=== PATIENT | male | born 1950 | race Caucasian/White ===

== ENCOUNTER 2018-02-24 09:38 | Inpatient (IN) | payer MEDICARE, OTHER ==
[2018-02-24] MEDS ORDERED: ONDANSETRON 4 MG/2 ML VIAL IVP STA (11:04)
[2018-02-24] MEDS ORDERED: MORPHINE SULFATE 4 MG/ML SYRINGE IV STA (11:04)
[2018-02-24] MEDS ORDERED: SODIUM CHLORIDE 0.9% 1,000 ML IV STA (11:04)
--- NOTE | 2018-02-24 11:06 | ED ---
General Adult HPI - General Chief complaint: Abdominal Pain Stated complaint: abd pain,vomiting Time Seen by Provider: 02/24/18 10:54 Source: family, RN notes reviewed Mode of arrival: wheelchair Limitations: no limitations - History of Present Illness Initial comments: Patient's a 67-year-old male presented to the emergency room today with chief complaint of abdominal pain nausea vomiting diarrhea. He states symptoms started at 5 AM this morning. He states pain is going throughout the abdomen describes a sharp. Currently rates it a 01/19. Patient states she's never had similar symptoms in the past. Patient denies any recent fever, chills, shortness of breath, chest pain, back pain, numbness or tingling, dysuria or hematuria, constipation, headaches or visual changes, or any other complaints. - Related Data Home Medications Medication Instructions Recorded Confirmed Escitalopram [Lexapro] 10 mg PO DAILY 02/24/18 02/24/18 Melatonin 10 mg PO HS PRN 02/24/18 02/24/18 Tamsulosin HCl [Flomax] 0.4 mg PO DAILY 02/24/18 02/24/18 buPROPion HCL [Wellbutrin SR] 150 mg PO BID 02/24/18 02/24/18 Allergies Allergy/AdvReac Type Severity Reaction Status Date / Time clonazepam [From Klonopin] Allergy Itching Verified 02/24/18 10:55 divalproex sodium AdvReac RINGING OF Verified 02/24/18 10:55 [From Depakote] EARS Review of Systems ROS Statement: Those systems with pertinent positive or pertinent negative responses have been documented in the HPI. ROS Other: All systems not noted in ROS Statement are negative. Past Medical History Past Medical History: Hypertension, Memory Impairment, Myocardial Infarction ([place] ), Sleep Apnea/CPAP/BIPAP Additional Past Medical History / Comment(s): HX SHINGLES Last Myocardial Infarction Date:: 1991 History of Any Multi-Drug Resistant Organisms: None Reported Past Surgical History: Appendectomy, Orthopedic Surgery, Tonsillectomy Past Anesthesia/Blood Transfusion Reactions: No Reported Reaction Past Psychological History: ADD/ADHD, Anxiety Smoking Status: Former smoker Past Alcohol Use History: None Reported Past Drug Use History: None Reported General Exam - General Exam Comments Initial Comments: General: The patient is awake and alert, in moderate distress. Eye: Pupils are equal, round and reactive to light. Extra-ocular movements are intact. No nystagmus. There is normal conjunctiva bilaterally. No signs of icterus. Ears, nose, mouth and throat: There are moist mucous membranes and no oral lesions. Neck: The neck is supple, there is no tenderness or JVD. Cardiovascular: There is a regular rate and rhythm. No murmur, rub or gallop is appreciated. Respiratory: Lungs are clear to auscultation, respirations are non-labored, breath sounds are equal. No wheezes, stridor, rales, or rhonchi. Gastrointestinal: Abdomen soft on palpation. Patient does have tenderness both on the right, left upper and lower quadrants no CVA tenderness or guarding. Musculoskeletal: Normal ROM, no tenderness. Sensation intact. Strength 5/5. Pulses equal bilaterally 2+. Neurological: A&O x 3. CN II-XII intact, There are no obvious motor or sensory deficits. Coordination appears grossly intact. Speech is normal. Skin: Skin is warm and dry and no rashes or lesions are noted. Psychiatric: Cooperative, appropriate mood & affect, normal judgment. Limitations: no limitations Course Vital Signs 02/24/18 02/24/18 02/24/18: 11:04 14:00 Temperature 97.9 F Pulse Rate 62 64 Respiratory 26 H 19 Rate Blood Pressure 144/83 163/95 O2 Sat by Pulse 98 96 Oximetry Medical Decision Making - Medical Decision Making Patient's labs reviewed does show a lactic acid 3.3 with a white count of 17, 000. Patient's abdominal pain much improved after pain medication given here in the emergency room. He does admit that he had loose stools this morning. States she's not been passing gas since. He denies any history of small bowel obstruction in the past. Patient's CT of the abdomen and pelvis does show evidence for SBO. Case was discussed with attending physician Dr Blevins did discuss case with surgeon sanitation associate Dr. Rodriguez who will admit the patient and recommend starting antibiotics of Unasyn. - Lab Data Result diagrams: 02/24/18 11:50 02/24/18 11:50 Lab Results 02/24/18 02/24/18 02/24/18 Range/Units 11:50 11:50 11:50 WBC 17.7 H (3.8-10.6) k/uL RBC 5.79 (4.30-5.90) m/uL Hgb 17.3 (13.0-17.5) gm/dL Hct 50.0 (39.0-53.0) % MCV 86.3 (80.0-100.0) fL MCH 29.9 (25.0-35.0) pg MCHC 34.7 (31.0-37.0) g/dL RDW 13.0 (11.5-15.5) % Plt Count 182 (150-450) k/uL Neutrophils % 90 % Lymphocytes % 6 % Monocytes % 3 % Eosinophils % 1 % Basophils % 0 % Neutrophils # 15.9 H (1.3-7.7) k/uL Lymphocytes # 1.0 (1.0-4.8) k/uL Monocytes # 0.6 (0-1.0) k/uL Eosinophils # 0.2 (0-0.7) k/uL Basophils # 0.0 (0-0.2) k/uL Sodium 138 (137-145) mmol/L Potassium 4.7 (3.5-5.1) mmol/L Chloride 108 H (98-107) mmol/L Carbon Dioxide 18 L (22-30) mmol/L Anion Gap 12 mmol/L BUN 31 H (9-20) mg/dL Creatinine 1.11 (0.66-1.25) mg/dL Est GFR (CKD-EPI)AfAm 79 (>60 ml/min/1.73 sqM) Est GFR (CKD-EPI)NonAf 69 (>60 ml/min/1.73 sqM) Glucose 178 H (74-99) mg/dL Plasma Lactic Acid Obi 3.3 H* (0.7-2.0) mmol/L Calcium 9.3 (8.4-10.2) mg/dL Total Bilirubin 1.1 (0.2-1.3) mg/dL AST 31 (17-59) U/L ALT 29 (21-72) U/L Alkaline Phosphatase 81 (38-126) U/L Total Protein 7.1 (6.3-8.2) g/dL Albumin 4.1 (3.5-5.0) g/dL Amylase 64 (30-110) U/L Lipase 52 (23-300) U/L Urine Color Urine Appearance (Clear) Urine pH (5.0-8.0) Ur Specific [place] (1.001-1.035) Urine Protein (Negative) Urine Glucose (UA) (Negative) Urine Ketones (Negative) Urine Blood (Negative) Urine Nitrite (Negative) Urine Bilirubin (Negative) Urine Urobilinogen (<2.0) mg/dL Ur Leukocyte Esterase (Negative) 02/24/18 Range/Units 14:00 WBC (3.8-10.6) k/uL RBC (4.30-5.90) m/uL Hgb (13.0-17.5) gm/dL Hct (39.0-53.0) % MCV (80.0-100.0) fL MCH (25.0-35.0) pg MCHC (31.0-37.0) g/dL RDW (11.5-15.5) % Plt Count (150-450) k/uL Neutrophils % % Lymphocytes % % Monocytes % % Eosinophils % % Basophils % % Neutrophils # (1.3-7.7) k/uL Lymphocytes # (1.0-4.8) k/uL Monocytes # (0-1.0) k/uL Eosinophils # (0-0.7) k/uL Basophils # (0-0.2) k/uL Sodium (137-145) mmol/L Potassium (3.5-5.1) mmol/L Chloride (98-107) mmol/L Carbon Dioxide (22-30) mmol/L Anion Gap mmol/L BUN (9-20) mg/dL Creatinine (0.66-1.25) mg/dL Est GFR (CKD-EPI)AfAm (>60 ml/min/1.73 sqM) Est GFR (CKD-EPI)NonAf (>60 ml/min/1.73 sqM) Glucose (74-99) mg/dL Plasma Lactic Acid Obi (0.7-2.0) mmol/L Calcium (8.4-10.2) mg/dL Total Bilirubin (0.2-1.3) mg/dL AST (17-59) U/L ALT (21-72) U/L Alkaline Phosphatase (38-126) U/L Total Protein (6.3-8.2) g/dL Albumin (3.5-5.0) g/dL Amylase (30-110) U/L Lipase (23-300) U/L Urine Color Yellow Urine Appearance Clear (Clear) Urine pH 5.5 (5.0-8.0) Ur Specific [place] 1.049 H (1.001-1.035) Urine Protein Trace H (Negative) Urine Glucose (UA) Negative (Negative) Urine Ketones 1+ H (Negative) Urine Blood Negative (Negative) Urine Nitrite Negative (Negative) Urine Bilirubin Negative (Negative) Urine Urobilinogen <2.0 (<2.0) mg/dL Ur Leukocyte Esterase Negative (Negative) Disposition Clinical Impression: SBO (small bowel obstruction) Disposition: ADMITTED IP TO THIS HOSP Condition: Good Is patient prescribed a controlled substance at d/c from ED?: No Referrals: Cory Linder MD [Primary Care Provider] - 1-2 days Time of Disposition: 14:34
[2018-02-24 12:10] LABS: Basophils % (A) 0 %; Eosinophils # (A) 0.2 k/uL (0-0.7); Eosinophils % (A) 1 %; HGB 17.3 gm/dL (13.0-17.5); Lymphocytes % (A) 6 %; MCH 29.9 pg (25.0-35.0); MCHC 34.7 g/dL (31.0-37.0); MCV 86.3 fL (80.0-100.0); Monocytes # (A) 0.6 k/uL (0-1.0); Monocytes % (A) 3 %; Neutrophils # (A) 15.9 k/uL (1.3-7.7); Neutrophils % (A) 90 %; Platelet Count 182 k/uL (150-450); RBC 5.79 m/uL (4.30-5.90); WBC 17.7 k/uL (3.8-10.6)
[2018-02-24 12:30] LABS: Albumin 4.1 g/dL (3.5-5.0); Calcium 9.3 mg/dL (8.4-10.2); Total Bilirubin 1.1 mg/dL (0.2-1.3); Total Protein 7.1 g/dL (6.3-8.2)
[2018-02-24 12:32] LABS: Potassium 4.7 mmol/L (3.5-5.1)
[2018-02-24] MEDS ORDERED: GLYCOPYRROLATE 0.2 MG/ML 2 ML VIAL ONE (12:52)
[2018-02-24] MEDS ORDERED: fentaNYL (PF) 50 MCG/ML 2 ML AMP ONE (12:52)
[2018-02-24] MEDS ORDERED: NEOSTIGMINE 1 MG/ML 10 ML VIAL ONE (12:52)
[2018-02-24] MEDS ORDERED: PROPOFOL 10 MG/ML 20 ML VIAL IV ONE (12:52)
[2018-02-24] MEDS ORDERED: ePHEDrine SULFATE/0.9% NACL/PF 50 MG/5 ML SYRINGE IV ONE (12:52)
[2018-02-24] MEDS ORDERED: MIDAZOLAM 2 MG/2 ML VIAL ONE (12:52)
[2018-02-24] MEDS ORDERED: ROCURONIUM BROMIDE 10 MG/ML 10 ML VIAL IV ONE (12:52)
--- NOTE | 2018-02-24 14:07 | CT ---
EXAMINATION TYPE: CT abdomen pelvis w con DATE OF EXAM: 02/24/2018 COMPARISON: None HISTORY: abdominal pain CT DLP: 749.8 mGycm Automated exposure control for dose reduction was used. TECHNIQUE: Helical acquisition of images from the lung bases through the pelvis have been completed. CONTRAST: Performed without Oral Contrast and with IV Contrast, patient injected with 100 mL of Isovue 300. FINDINGS: Lack of oral contrast may compromise sensitivity. There is a small hiatal hernia present. LUNG BASES: Dependent atelectatic changes are present. AORTA: No significant abnormality is appreciated. LIVER/GB: Multiple low attenuation subcentimeter foci scattered within the liver are statistically li tate to represent cysts, there is a cystic focus measuring 13 mm in the inferior posterior right lobe of the liver, gallbladder is normal PANCREAS: No significant abnormality is seen. SPLEEN: No significant abnormality is seen. ADRENALS: No significant abnormality is seen. KIDNEYS: Exophytic cystic focus at the lower pole the right kidney measures 2.4 cm REPRODUCTIVE ORGANS: Prostate calcifications are present. BOWEL: There are dilated loops of fluid-filled small bowel in the right hemiabdomen. There is a sugg estion of swirling of the mesentery. Abrupt caliber change is noted on axial images 43-44 in the righ t lower quadrant. There is poor wall enhancement of some of the small bowel loops, suggestion of poss ible tethering artifact with fluid in the mesentery. The appendix is not seen. FREE AIR: No Free Air visible. ASCITES: Small amount of fluid present around the liver and spleen and in the pelvis. PELVIC ADENOPATHY: None visualized. RETROPERITONEAL ADENOPATHY: No Retroperitoneal Adenopathy visible. URINARY BLADDER: No significant abnormality is seen. OSSEOUS STRUCTURES: No significant abnormality is seen. IMPRESSION: FINDINGS SUGGEST POSSIBLE MECHANICAL BOWEL OBSTRUCTION, THERE MAY BE ASSOCIATED ISCHEMIC BOWEL, POSSI BLE INTERNAL HERNIA. Report relayed telephonically to the referring clinician at the time of interpre tation at exam the emergency center.
[2018-02-24 14:20] LABS: Appearance,Urine Clear (Clear); Bilirubin,Urine Negative (Negative); Blood,Urine Negative (Negative); Color,Urine Yellow; Glucose,Urine (UA) Negative (Negative); Ketones,Urine 1+ (Negative); Leukocyte Esterase,Urine Negative (Negative); Nitrite,Urine Negative (Negative); PH, Urine 5.5 (5.0-8.0); Protein,Urine Trace (Negative); Urobilinogen,Urine <2.0 mg/dL (<2.0)
[2018-02-24 14:21] LABS: Specific Gravity,Urine 1.049 (1.001-1.035)
[2018-02-24] MEDS ORDERED: AMPICILLIN-SULBACTAM 3 GM in SODIUM CHLORIDE 0.9% 100 ML IVPB STA (14:22)
[2018-02-24] MEDS ORDERED: NALOXONE 0.4 MG/ML 1 ML VIAL IV PRN (14:35)
[2018-02-24] MEDS ORDERED: ONDANSETRON 4 MG/2 ML VIAL IVP PRN (14:35)
[2018-02-24] MEDS ORDERED: SODIUM CHLORIDE 0.9% 1,000 ML IV ONE (14:35)
[2018-02-24] MEDS: MORPHINE SULFATE 4 MG/ML SYRINGE IV PRN (19:30)
[2018-02-24] MEDS ORDERED: hydrALAZINE HCL 20 MG/ML 1 ML VIAL IVP STA (19:39)
[2018-02-24] MEDS: AMPICILLIN-SULBACTAM 3 GM in SODIUM CHLORIDE 0.9% 100 ML IVPB SCH (21:51)
[2018-02-24] MEDS ORDERED: hydrALAZINE HCL 20 MG/ML 1 ML VIAL IVP PRN (22:39)
[2018-02-25] MEDS: MORPHINE SULFATE 4 MG/ML SYRINGE IV PRN ×3 (00:38→09:22)
[2018-02-25] MEDS: AMPICILLIN-SULBACTAM 3 GM in SODIUM CHLORIDE 0.9% 100 ML IVPB SCH ×5 (02:40→23:54)
[2018-02-25 08:58] LABS: Basophils % (A) 0 %; Eosinophils # (A) 0.1 k/uL (0-0.7); Eosinophils % (A) 1 %; HCT 48.8 % (39.0-53.0); HGB 15.9 gm/dL (13.0-17.5); Lymphocytes % (A) 21 %; MCHC 32.6 g/dL (31.0-37.0); MCV 89.1 fL (80.0-100.0); Mean Platelet Volume 7.7; Monocytes # (A) 0.5 k/uL (0-1.0); Monocytes % (A) 5 %; Neutrophils % (A) 72 %; Platelet Count 165 k/uL (150-450); RBC 5.47 m/uL (4.30-5.90); RDW 13.2 % (11.5-15.5); WBC 9.8 k/uL (3.8-10.6)
[2018-02-25 09:22] LABS: Albumin 3.2 g/dL (3.5-5.0); Calcium 8.6 mg/dL (8.4-10.2); Potassium 4.6 mmol/L (3.5-5.1); Total Bilirubin 1.3 mg/dL (0.2-1.3); Total Protein 5.8 g/dL (6.3-8.2)
[2018-02-25] MEDS: PANTOPRAZOLE 40 MG/10 ML VIAL IVP SCH ×2 (09:22→22:03)
--- NOTE | 2018-02-25 10:05 | P.GSHP ---
<Dulce Maxwell - Last Filed: 02/25/18 09:49> History of Present Illness H&P Date: 02/25/18 67-year-old male who presented on the day of admission to the emergency room with a chief complaint of developing sudden onset of abdominal pain associated with nausea vomiting and loose stools. Patient stated that the pain felt sharp going through his abdomen points to the mid epigastric areas to the reference point. Patient stated was pain that he had not experienced in the past. Patient stated that most of his life he has been experiencing constipation with episodes of loose stools. Reviewing computerized record 2013 patient was seen by GI service for constipation and dark stools. Underwent a colonoscopy. The colon Exam is within normal limits. In the emergency room a computed tomography scan of the abdomen pelvis with contrast reviewing the report findings suggest possible mechanical bowel obstruction may be associated with ischemic bowel possible internal hernia. White count on admission was 17.5 this morning 9.8 amylase lipase not elevated total bili 1.1 on admission 1.3 this morning in the emergency room a nasogastric tube was inserted with a 400 mL to return. Currently gastric tube connected to intermittent suction approximate 400 out. Patient reports still having diffuse abdominal cramping the nausea sensation no emesis Past surgical history appendectomy, orthopedic procedures, tonsillectomy. Past medical history memory impairment, sleep apnea, hypertension - Review of Systems Comment: Essentially unremarkable except as mentioned in the present illness Past Medical History Past Medical History: GERD/Reflux, GI Bleed, Hypertension, Memory Impairment, Myocardial Infarction ([place]), Osteoarthritis ([place]), Pneumonia, Sleep Apnea/CPAP/ BIPAP Additional Past Medical History / Comment(s): "shingles >5 years ago", "born with heart murmur", "past blood rectally d/t hemmorhoids", hx migraines,past juandice/hepatitis-not sure what type."alternates between diarrhea and constitaion", cataracts. Last Myocardial Infarction Date:: 1991 History of Any Multi-Drug Resistant Organisms: None Reported Past Surgical History: Appendectomy, Orthopedic Surgery, Tonsillectomy Past Anesthesia/Blood Transfusion Reactions: No Reported Reaction Additional Past Anesthesia/Blood Transfusion Reaction / Comment(s): clausterphobia. never had a blood transfusion. Smoking Status: Former smoker - Past Family History Father Family Medical History: Cancer Mother Additional Family Medical History / Comment(s): rh-neg, "lung problems" Medications and Allergies Home Medications Medication Instructions Recorded Confirmed Type Escitalopram [Lexapro] 10 mg PO DAILY 02/24/18 02/24/18 History Melatonin 10 mg PO HS PRN 02/24/18 02/24/18 History Tamsulosin HCl [Flomax] 0.4 mg PO DAILY 02/24/18 02/24/18 History buPROPion HCL [Wellbutrin SR] 150 mg PO BID 02/24/18 02/24/18 History Allergies Allergy/AdvReac Type Severity Reaction Status Date / Time clonazepam [From Klonopin] Allergy Itching Verified 02/24/18 10:55 divalproex sodium AdvReac RINGING OF Verified 02/24/18 10:55 [From Depakote] EARS Surgical - Exam Vital Signs Pulse Resp BP Pulse Ox 62 26 H 144/83 98 02/24/18 10:19 02/24/18 10:19 02/24/18 10:19 02/24/18 10:19 GENERAL APPEARANCE: 67-year-old male patient is alert, orientedx 3 in no acute distress. "Just received pain medication" VITAL SIGNS: Reviewed HEENT: Head is normocephalic and atraumatic. Pupils are equal and reactive. The nares are patent. Oropharynx is clear without lesions. NECK: Supple without lymphadenopathy. Traches midline. HEART: S1, S2. Regular rate and rhythm. No murmur denying chest pain LUNGS: No crackles or wheezes are heard. On room air no shortness of breath ABDOMEN: Nasogastric tube to intermittent suction diffuse tenderness slightly distended with few bowel sounds. No peritoneal signs. No palpable organomegaly or masses. EXTREMITIES: Normal skin color and turgor. No cyanosis, rash, ulceration, clubbing or edema. Radial pedal pulses are 2/4 bilaterally. NEUROLOGICAL: No focal deficits. Strength and sensation are grossly intact. Results - Labs 02/25/18 08:19 02/25/18 08:19 Abnormal Lab Results - Last 24 Hours (Table) 02/24/18 02/24/18 02/24/18 Range/Units 11:50 11:50 11:50 WBC 17.7 H (3.8-10.6) k/uL Neutrophils # 15.9 H (1.3-7.7) k/uL Chloride 108 H (98-107) mmol/L Carbon Dioxide 18 L (22-30) mmol/L BUN 31 H (9-20) mg/dL Glucose 178 H (74-99) mg/dL Plasma Lactic Acid Obi 3.3 H* (0.7-2.0) mmol/L Total Protein (6.3-8.2) g/dL Albumin (3.5-5.0) g/dL Ur Specific [place] (1.001-1.035) Urine Protein (Negative) Urine Ketones (Negative) 02/24/18 02/25/18 Range/Units 14:00 08:19 WBC (3.8-10.6) k/uL Neutrophils # (1.3-7.7) k/uL Chloride 108 H (98-107) mmol/L Carbon Dioxide (22-30) mmol/L BUN 30 H (9-20) mg/dL Glucose (74-99) mg/dL Plasma Lactic Acid Obi (0.7-2.0) mmol/L Total Protein 5.8 L (6.3-8.2) g/dL Albumin 3.2 L (3.5-5.0) g/dL Ur Specific [place] 1.049 H (1.001-1.035) Urine Protein Trace H (Negative) Urine Ketones 1+ H (Negative) Diabetes panel 02/24/18 02/25/18 Range/Units 11:50 08:19 Sodium 138 140 (137-145) mmol/L Potassium 4.7 4.6 (3.5-5.1) mmol/L Chloride 108 H 108 H (98-107) mmol/L Carbon Dioxide 18 L 26 (22-30) mmol/L BUN 31 H 30 H (9-20) mg/dL Creatinine 1.11 1.13 (0.66-1.25) mg/dL Glucose 178 H 90 (74-99) mg/dL Calcium 9.3 8.6 (8.4-10.2) mg/dL AST 31 22 (17-59) U/L ALT 29 25 (21-72) U/L Alkaline Phosphatase 81 55 (38-126) U/L Total Protein 7.1 5.8 L (6.3-8.2) g/dL Albumin 4.1 3.2 L (3.5-5.0) g/dL Calcium panel 02/24/18 02/25/18 Range/Units 11:50 08:19 Calcium 9.3 8.6 (8.4-10.2) mg/dL Albumin 4.1 3.2 L (3.5-5.0) g/dL Pituitary panel 02/24/18 02/25/18 Range/Units 11:50 08:19 Sodium 138 140 (137-145) mmol/L Potassium 4.7 4.6 (3.5-5.1) mmol/L Chloride 108 H 108 H (98-107) mmol/L Carbon Dioxide 18 L 26 (22-30) mmol/L BUN 31 H 30 H (9-20) mg/dL Creatinine 1.11 1.13 (0.66-1.25) mg/dL Glucose 178 H 90 (74-99) mg/dL Calcium 9.3 8.6 (8.4-10.2) mg/dL Adrenal panel 02/24/18 02/25/18 Range/Units 11:50 08:19 Sodium 138 140 (137-145) mmol/L Potassium 4.7 4.6 (3.5-5.1) mmol/L Chloride 108 H 108 H (98-107) mmol/L Carbon Dioxide 18 L 26 (22-30) mmol/L BUN 31 H 30 H (9-20) mg/dL Creatinine 1.11 1.13 (0.66-1.25) mg/dL Glucose 178 H 90 (74-99) mg/dL Calcium 9.3 8.6 (8.4-10.2) mg/dL Total Bilirubin 1.1 1.3 (0.2-1.3) mg/dL AST 31 22 (17-59) U/L ALT 29 25 (21-72) U/L Alkaline Phosphatase 81 55 (38-126) U/L Total Protein 7.1 5.8 L (6.3-8.2) g/dL Albumin 4.1 3.2 L (3.5-5.0) g/dL Assessment and Plan Assessment: Impression Present on admission diffuse abdominal pain suspect due to mechanical small bowel obstruction as suggested on a CAT scan of the abdomen pelvis Present on admission leukocytosis history of colitis CAT scan abdomen and pelvis report indicate possible small bowel obstruction may be associated with ischemic bowel possible internal hernia Plan Keep nothing by mouth Nasogastric tube intermittent suction Pain control IV fluid for hydration DVT and GI prophylaxis will be scheduled today for an exploratory laparotomy further surgical recommendations per Dr. carter IV Unasyn as ordered The above impression and plan of care have been discussed and directed by signing physician. Dulce Maxwell nurse practitioner acting as scribe for signing physician. <Rashaun Carter - Last Filed: 02/25/18 11:48> Surgical - Exam Vital Signs Pulse Resp BP Pulse Ox 62 26 H 144/83 98 02/24/18 10:19 02/24/18 10:19 02/24/18 10:19 02/24/18 10:19 Results - Labs 02/25/18 08:19 02/25/18 08:19 Abnormal Lab Results - Last 24 Hours (Table) 02/24/18 02/24/18 02/24/18 Range/Units 11:50 11:50 11:50 WBC 17.7 H (3.8-10.6) k/uL Neutrophils # 15.9 H (1.3-7.7) k/uL Chloride 108 H (98-107) mmol/L Carbon Dioxide 18 L (22-30) mmol/L BUN 31 H (9-20) mg/dL Glucose 178 H (74-99) mg/dL Plasma Lactic Acid Obi 3.3 H* (0.7-2.0) mmol/L Total Protein (6.3-8.2) g/dL Albumin (3.5-5.0) g/dL Ur Specific [place] (1.001-1.035) Urine Protein (Negative) Urine Ketones (Negative) 02/24/18 02/25/18 Range/Units 14:00 08:19 WBC (3.8-10.6) k/uL Neutrophils # (1.3-7.7) k/uL Chloride 108 H (98-107) mmol/L Carbon Dioxide (22-30) mmol/L BUN 30 H (9-20) mg/dL Glucose (74-99) mg/dL Plasma Lactic Acid Obi (0.7-2.0) mmol/L Total Protein 5.8 L (6.3-8.2) g/dL Albumin 3.2 L (3.5-5.0) g/dL Ur Specific [place] 1.049 H (1.001-1.035) Urine Protein Trace H (Negative) Urine Ketones 1+ H (Negative) Diabetes panel 02/24/18 02/25/18 Range/Units 11:50 08:19 Sodium 138 140 (137-145) mmol/L Potassium 4.7 4.6 (3.5-5.1) mmol/L Chloride 108 H 108 H (98-107) mmol/L Carbon Dioxide 18 L 26 (22-30) mmol/L BUN 31 H 30 H (9-20) mg/dL Creatinine 1.11 1.13 (0.66-1.25) mg/dL Glucose 178 H 90 (74-99) mg/dL Calcium 9.3 8.6 (8.4-10.2) mg/dL AST 31 22 (17-59) U/L ALT 29 25 (21-72) U/L Alkaline Phosphatase 81 55 (38-126) U/L Total Protein 7.1 5.8 L (6.3-8.2) g/dL Albumin 4.1 3.2 L (3.5-5.0) g/dL Calcium panel 02/24/18 02/25/18 Range/Units 11:50 08:19 Calcium 9.3 8.6 (8.4-10.2) mg/dL Albumin 4.1 3.2 L (3.5-5.0) g/dL Pituitary panel 02/24/18 02/25/18 Range/Units 11:50 08:19 Sodium 138 140 (137-145) mmol/L Potassium 4.7 4.6 (3.5-5.1) mmol/L Chloride 108 H 108 H (98-107) mmol/L Carbon Dioxide 18 L 26 (22-30) mmol/L BUN 31 H 30 H (9-20) mg/dL Creatinine 1.11 1.13 (0.66-1.25) mg/dL Glucose 178 H 90 (74-99) mg/dL Calcium 9.3 8.6 (8.4-10.2) mg/dL Adrenal panel 02/24/18 02/25/18 Range/Units 11:50 08:19 Sodium 138 140 (137-145) mmol/L Potassium 4.7 4.6 (3.5-5.1) mmol/L Chloride 108 H 108 H (98-107) mmol/L Carbon Dioxide 18 L 26 (22-30) mmol/L BUN 31 H 30 H (9-20) mg/dL Creatinine 1.11 1.13 (0.66-1.25) mg/dL Glucose 178 H 90 (74-99) mg/dL Calcium 9.3 8.6 (8.4-10.2) mg/dL Total Bilirubin 1.1 1.3 (0.2-1.3) mg/dL AST 31 22 (17-59) U/L ALT 29 25 (21-72) U/L Alkaline Phosphatase 81 55 (38-126) U/L Total Protein 7.1 5.8 L (6.3-8.2) g/dL Albumin 4.1 3.2 L (3.5-5.0) g/dL Assessment and Plan Plan: Issues CAT scan shows evidence of small bowel obstruction with possible internal hernia. The patient is still quite tender. Patient will undergo exploratory laparotomy lysis of adhesions today. The patient aware the risk of possible bowel resection.
[2018-02-25] MEDS ORDERED: IV FLUID CONTINUATION 1,000 ML IV ONE (11:04)
[2018-02-25] MEDS ORDERED: HEPARIN SODIUM,PORCINE 5,000 UNIT/ML 1 ML VIAL SQ ONE (11:31)
[2018-02-25] MEDS ORDERED: fentaNYL (PF) 50 MCG/ML 2 ML AMP IVP ONE (12:09)
[2018-02-25] MEDS ORDERED: SODIUM CHLORIDE 0.9% 50 ML with ceFAZolin 2,000 MG IV ONE ×2 (13:10)
[2018-02-25] MEDS ORDERED: LACTATED RINGERS 1,000 ML IV ONE ×3 (13:30→14:51)
[2018-02-25] MEDS ORDERED: ACETAMINOPHEN TAB 325 MG TAB PO PRN (13:31)
[2018-02-25] MEDS ORDERED: traMADol 50 MG TAB PO PRN (13:31)
[2018-02-25] MEDS ORDERED: NALOXONE 0.4 MG/ML 1 ML VIAL IV PRN ×2 (13:31→16:08)
[2018-02-25] MEDS ORDERED: METOCLOPRAMIDE 5 MG/ML 2 ML VIAL IVP PRN (13:31)
[2018-02-25] MEDS: HYDROmorphone 1 MG/ML 1 ML SYRINGE IVP PRN ×2 (14:08→22:03)
[2018-02-25] MEDS: KETOROLAC 30 MG/ML 1 ML VIAL IVP SCH ×3 (14:17→19:51)
[2018-02-25] MEDS ORDERED: HYDROmorphone 1 MG/ML 1 ML SYRINGE IVP ONE (14:30)
[2018-02-25] MEDS: SODIUM CHLORIDE 0.9% 1,000 ML IV SCH ×2 (15:27→16:36)
[2018-02-25] MEDS ORDERED: ROPIVACAINE 250 MG, fentaNYL (PF) 1,250 MCG in SODIUM CHLORIDE 0.9% 175 ML EPIDURAL PRN (16:08)
[2018-02-25] MEDS: HEPARIN SODIUM,PORCINE 5,000 UNIT/ML 1 ML VIAL SQ SCH ×2 (16:35→23:54)
[2018-02-25] MEDS: DOCUSATE 100 MG CAP PO SCH (22:03)
[2018-02-26] MEDS: KETOROLAC 30 MG/ML 1 ML VIAL IVP SCH ×4 (01:19→20:21)
[2018-02-26] MEDS: HYDROmorphone 1 MG/ML 1 ML SYRINGE IVP PRN ×3 (01:19→17:17)
[2018-02-26] MEDS: SODIUM CHLORIDE 0.9% 1,000 ML IV SCH ×3 (01:23→17:44)
[2018-02-26] MEDS: AMPICILLIN-SULBACTAM 3 GM in SODIUM CHLORIDE 0.9% 100 ML IVPB SCH ×3 (05:48→17:16)
--- NOTE | 2018-02-26 07:51 | P.OP ---
Date of Procedure: 02/25/18 Preoperative Diagnosis: Small bowel obstruction Postoperative Diagnosis: Small bowel obstruction secondary to closed loop obstruction due to omental adhesion Procedure(s) Performed: Exploratory laparotomy Lysis of adhesion Anesthesia: HERMINIO Surgeon: Rashaun Rodriguez Estimated Blood Loss (ml): 5 Pathology: none sent Condition: stable Disposition: PACU Description of Procedure: Patient's placed on the operative table supine position. He received general anesthesia. His abdomen was prepped and draped usual sterile fashion. The abdomen was entered through a midline skin incision upon entering the abdomen there was some serosanguineous fluid. There was evidence of a valve structure. The bowel was run and in the right lower quadrant there was a closed loop obstruction on the proximal ileum related to adhesive band. The adhesion was released. The bowel was then brought up in the wound. The bowel was hyperemic but appeared viable there is no evidence of necrosis. The bowel was observed for several minutes and appeared to become more pink. The abdomen was irrigated there is no bleeding seen. The fascia is closed with looped #1 PDS suture. Skin was closed judy.
[2018-02-26 08:00] LABS: Basophils % (A) 0 %; Eosinophils # (A) 0.1 k/uL (0-0.7); Eosinophils % (A) 1 %; HCT 41.3 % (39.0-53.0); HGB 13.1 gm/dL (13.0-17.5); Lymphocytes # (A) 1.1 k/uL (1.0-4.8); Lymphocytes % (A) 12 %; MCH 28.5 pg (25.0-35.0); MCHC 31.7 g/dL (31.0-37.0); MCV 89.8 fL (80.0-100.0); Mean Platelet Volume 8.1; Monocytes # (A) 0.6 k/uL (0-1.0); Monocytes % (A) 7 %; Neutrophils % (A) 80 %; Platelet Count 122 k/uL (150-450); RDW 13.2 % (11.5-15.5); WBC 8.8 k/uL (3.8-10.6)
[2018-02-26] MEDS: HEPARIN SODIUM,PORCINE 5,000 UNIT/ML 1 ML VIAL SQ SCH (08:42)
[2018-02-26] MEDS: ENOXAPARIN 40 MG/0.4 ML SYRINGE SQ SCH (08:42)
[2018-02-26] MEDS: PANTOPRAZOLE 40 MG/10 ML VIAL IVP SCH ×2 (08:44→20:25)
[2018-02-26] MEDS: DOCUSATE 100 MG CAP PO SCH ×2 (08:45→20:25)
--- NOTE | 2018-02-26 11:43 | P.PN ---
Subjective Progress Note Date: 02/26/18 67-year-old male seen this morning at bedside patient reportedly pulled out the nasogastric tube and epidural cath last night. Patient states the tubes were bothersome to him" currently indwelling Summers catheter in place. Abdominal binder in place. States not passing gas no stool Status post February 25 exploratory laparotomy lysis of adhesions Small bowel obstruction secondary to closed loop obstruction due to omental adhesion Objective - Vital Signs Vital signs: Vital Signs Temp 99.4 F 02/26/18 07:53 Pulse 89 02/26/18 07:53 Resp 17 02/26/18 07:53 BP 148/88 02/26/18 07:53 Pulse Ox 87 L 02/26/18 07:53 Intake & Output 02/25/18 02/26/18 02/26/18 18:59 06:59 18:59 Intake Total 1550 875 Output Total 275 450 Balance 1275 425 Intake: IV 1550 Intake, IV Titration 875 Amount Lactated Ringers 1,000 ml 500 @ 125 mls/hr IV .Q8H [facility] Rx#:[id number] Sodium Chloride 0.9% 1, 375 000 ml @ 125 mls/hr IV . Q8H [facility] Rx#:[id number] Output: Urine 255 450 Estimated Blood Loss 20 Other: Voiding Method Indwelling Catheter Indwelling Catheter Indwelling Catheter # Voids 1 # Bowel Movements 0 - Exam Physical exam 67-year-old male sitting up in bed appears in no acute distress Lungs adequate air movement bilaterally on room air Heart S1-S2 audible and regular Abdomen abdominal binder removed surgical incision inspected dried bloody drainage on the surgical dressing surgical tenderness appropriate few hypoactive bowel tones tolerating clear liquid diet no nausea no vomiting no stool not passing gas indwelling Summers catheter in place Extremities no edema - Labs CBC & Chem 7: 02/26/18 07:09 02/25/18 08:19 Labs: Abnormal Lab Results - Last 24 Hours (Table) 02/26/18 Range/Units 07:09 Plt Count 122 L (150-450) k/uL Microbiology - Last 24 Hours (Table) 02/24/18 15:18 Blood Culture - Preliminary Blood No Growth after 24 hours Assessment and Plan Assessment: Impression Present on admission diffuse abdominal pain suspect due to mechanical small bowel obstruction as suggested on a CAT scan of the abdomen pelvis Present on admission leukocytosis history of colitis CAT scan abdomen and pelvis report indicate possible small bowel obstruction may be associated with ischemic bowel possible internal hernia Small bowel obstruction secondary to closed loop obstruction due to omental adhesion Exploratory laparotomy and lysis of adhesions done on February 25 Plan Continue postop surgical care Remove indwelling Summers catheter Continue clear liquid diet until bowel function resumes Increase activity IV fluid for hydration Pain control IV fluid for hydration DVT and GI prophylaxis IV Unasyn as ordered The above impression and plan of care have been discussed and directed by signing physician. Dulce Maxwell nurse practitioner acting as scribe for signing physician.
[2018-02-26] MEDS: HYDROcodone/APAP 5-325MG 1 EACH TAB PO PRN ×2 (11:59→22:02)
--- NOTE | 2018-02-26 13:01 | P.PN ---
Progress Note - Text Anesthesia POD 1. Status Post [exploratory laparotomy and lysis of adhesions] under general endotracheal anesthesia with an epidrual catheter placed at T10 for post surgical pain releif. Unfortunately the patient accidentally dislodged the catheter overnight. Catheter site looks good.
--- NOTE | 2018-02-26 13:07 | CDI ---
Last Revision, April 2017 Documentation Clarification Form Date: 02/26/2018 12:49:38 PM From: Priti Vanegas RN, CCDS Admit Date: 02/24/2018 2:09:00 PM Patient Name: Axel Arriola Visit Number: [id number] Discharge Date: ATTENTION: The Clinical Documentation Specialists (CDI) and [facility] Coding Staff appreciate your assistance in clarifying documentation. Please respond to the clarification below the line at the bottom and electronically sign. The CDI & [facility] Coding staff will review the response and follow-up if needed. Please note: Queries are made part of the Legal Health Record. If you have any questions, please contact the author of this message via ITS. Rashaun Mccabe MD Documentation in the Operative Report included: There was a closed loop obstruction on the proximal ileum related the adhesive band. The adhesion was released. Patient history/risk factors Hypertension, Appendectomy Pre-operative diagnosis: Small bowel obstruction Postoperative diagnosis: Small bowel obstruction secondary to closed loop obstruction due to omental adhesion. Clinical Indicators: Present with complaint of abdominal pain nausea, vomiting, diarrhea CT abdomen: possible mechanical bowel obstruction may be associated ischemic bowel Vital Signs: 144/83 62 26 97.9 Treatment: Lysis of adhesions In order to capture the severity of condition, please specify the following: Extensive lysis of adhesions Non-extensive lysis of adhesions Other, please specify Unable to determine Please continue to document in your progress notes and discharge summary in order to capture severity of illness and risk of mortality. Include clinical findings that support your diagnosis. MTDD
[2018-02-27] MEDS: AMPICILLIN-SULBACTAM 3 GM in SODIUM CHLORIDE 0.9% 100 ML IVPB SCH ×3 (00:34→11:27)
[2018-02-27] MEDS: KETOROLAC 30 MG/ML 1 ML VIAL IVP SCH (01:51)
[2018-02-27] MEDS: HYDROcodone/APAP 5-325MG 1 EACH TAB PO PRN ×2 (05:58→11:32)
[2018-02-27] MEDS: SODIUM CHLORIDE 0.9% 1,000 ML IV SCH ×2 (07:32→08:26)
[2018-02-27 07:54] VITALS: BP 133/78; PULSE 63; RESP 18; TEMP 98.3
[2018-02-27] MEDS: PANTOPRAZOLE 40 MG/10 ML VIAL IVP SCH (08:25)
[2018-02-27] MEDS: ENOXAPARIN 40 MG/0.4 ML SYRINGE SQ SCH (08:26)
[2018-02-27] MEDS: DOCUSATE 100 MG CAP PO SCH (08:26)
[2018-02-27] MEDS ORDERED: BISACODYL 5 MG TABLET.DR PO STA (12:11)
--- NOTE | 2018-02-27 12:47 | P.DS ---
Providers Date of admission: 02/24/18 14:09 Expected date of discharge: 02/27/18 Attending physician: Rashaun Rodriguez Primary care physician: [facility] Course: 67-year-old male presents to the emergency room after reportedly experiencing a sudden onset of abdominal pain with nausea vomiting and frequent loose stools. Patient stated the pain was sharp went to his abdomen mid epigastric area. points to the midepigastric area where the pain was. He states he had not experiences pain in the past. states that most of his life he has experienced constipation with intermittent episodes of loose stools. In 2013 was seen by GI service for constipation underwent a colonoscopy and the exam was within normal limits. Emergency room patient underwent a CAT scan of the abdomen with contrast findings suggest possible mechanical small bowel obstruction may be associated with ischemic bowel possible internal hernia. White count was elevated 17.5. Nasal gastric tube was inserted in the emergency room with 400 out. Patient continued to have diffuse abdominal cramping with nausea. Small bowel obstruction secondary to closed loop obstruction due to omental non- extensive adhesion on the 25 of February underwent exploratory laparotomy non-extensive lysis of adhesions for small bowel obstruction done February 25 Impression discharge diagnosis Present on admission nausea vomiting abdominal pain suspect due to small bowel obstruction secondary to closed loop obstruction due to omental adhesions Small bowel obstruction secondary to closed loop obstruction due to omental non- extensive adhesions Present on admission diffuse abdominal pain suspect due to mechanical small bowel obstruction as suggested on a CAT scan of the abdomen pelvis Present on admission leukocytosis history of colitis CAT scan abdomen and pelvis report indicate possible small bowel obstruction may be associated with ischemic bowel possible internal hernia Small bowel obstruction secondary to closed loop obstruction due to non- extensive omental adhesion Exploratory laparotomy and non-extensive lysis of adhesions done on February 25 History of constipation The above impression and plan of care have been discussed and directed by signing physician. Dulce Maxwell nurse practitioner acting as scribe for signing physician. Patient Condition at Discharge: Good Plan - Discharge Summary Discharge Rx Participant: Yes New Discharge Prescriptions: New HYDROcodone/APAP 5-325MG [Robson 5-325] 2 each PO Q6HR PRN #18 tab PRN Reason: Moderate To Severe Pain Continue Melatonin 10 mg PO HS PRN PRN Reason: Insomnia Escitalopram [Lexapro] 10 mg PO DAILY buPROPion HCL [Wellbutrin SR] 150 mg PO BID Tamsulosin HCl [Flomax] 0.4 mg PO DAILY Discharge Medication List Escitalopram [Lexapro] 10 mg PO DAILY 02/24/18 [History] Melatonin 10 mg PO HS PRN 02/24/18 [History] Tamsulosin HCl [Flomax] 0.4 mg PO DAILY 02/24/18 [History] buPROPion HCL [Wellbutrin SR] 150 mg PO BID 02/24/18 [History] HYDROcodone/APAP 5-325MG [Robson 5-325] 2 each PO Q6HR PRN #18 tab 02/27/18 [Rx] Follow up Appointment(s)/Referral(s): Cory Linder MD [Primary Care Provider] - 1-2 days Rashaun Rodriguez MD [STAFF PHYSICIAN] - 1 Week Activity/Diet/Wound Care/Special Instructions: No tub bath for six weeks. Shower daily. No lifting over 10 pounds for the next 2 weeks. Low-fat diet May use ice packs to surgical site. No driving while taking narcotic for pain. Discharge Disposition: HOME SELF-CARE
[2018-02-27] MEDS ORDERED: PANTOPRAZOLE 40 MG TABLET PO SCH (17:30)
--- NOTE | 2018-03-01 22:24 | CONS ---
CONSULTATION SUBJECTIVE: This is a white male, status post small-bowel obstruction with exploratory laparotomy, for medical management consult. Home medications reviewed. No chest pain, no shortness of breath. He has increased ambulating. HOME MEDICATIONS: See old chart. FAMILY HISTORY: See old chart. SOCIAL HISTORY: Does smoke. Social alcohol. Knows other illicit drugs. REVIEW OF SYSTEMS: A 14-point review of systems negative except for mentioned in HPI. PHYSICAL EXAMINATION: VITAL SIGNS: Stable, afebrile. CARDIOVASCULAR: S1, S2. : No suprapubic tenderness. HEMATOLOGY: Negative Homans. PSYCH: Fair mood and affect. NEUROLOGIC: Alert and oriented x3. ASSESSMENT: Small-bowel obstruction, improving. Continue with home medications. Please see further orders in chart. MMODL / IJN: [id number] /
== END 2018-02-27 14:25 | disposition home or self-care (01) | DRG 337 ==
LOC: EC 09:38 → 4MS4W 14:09
PROVIDERS: ADMIT Surgery; ATTEND Surgery
PROC: 0DNU0ZZ Release Omentum, Open Approach (ICD-10-PCS; principal; 2018-02-25 10:15)
DX: K56.50 Intestinal adhesions [bands], unspecified as to partial versus complete obstruction (principal); F17.200 Nicotine dependence, unspecified, uncomplicated; G47.30 Sleep apnea, unspecified; I10 Essential (primary) hypertension; I25.2 Old myocardial infarction; K21.9 Gastro-esophageal reflux disease without esophagitis; Z79.899 Other long term (current) drug therapy; Z90.49 Acquired absence of other specified parts of digestive tract; Z88.8 Allergy status to other drugs, medicaments and biological substances
CPT/HCPCS: 36415; 74177; 80053; 81003; 82150; 83605; 83690; 85025; 87040; 88302; 96361; 96365; 96375; 96376; 99285

== ENCOUNTER 2021-01-11 20:39 | Inpatient (IN) | payer MEDICARE, OTHER ==
[2021-01-11] MEDS ORDERED: HYDROmorphone 0.5 MG/0.5 ML SYRINGE IVP STA (21:06)
[2021-01-11] MEDS ORDERED: FAMOTIDINE 20 MG/2 ML VIAL IV STA (21:06)
[2021-01-11] MEDS ORDERED: SODIUM CHLORIDE 0.9% 1,000 ML IV STA (21:06)
[2021-01-11] MEDS ORDERED: ONDANSETRON 4 MG/2 ML VIAL IVP STA (21:06)
[2021-01-11 21:35] LABS: Basophils % (A) 0 %; Eosinophils # (A) 0.1 k/uL (0-0.7); Eosinophils % (A) 1 %; HCT 51.3 % (39.0-53.0); HGB 17.8 gm/dL (13.0-17.5); Lymphocytes # (A) 0.8 k/uL (1.0-4.8); Lymphocytes % (A) 9 %; MCH 32.1 pg (25.0-35.0); MCHC 34.6 g/dL (31.0-37.0); MCV 92.8 fL (80.0-100.0); Mean Platelet Volume 8.7; Monocytes # (A) 0.2 k/uL (0-1.0); Monocytes % (A) 2 %; Neutrophils # (A) 7.7 k/uL (1.3-7.7); Neutrophils % (A) 87 %; Platelet Count 200 k/uL (150-450); RBC 5.53 m/uL (4.30-5.90); RDW 14.6 % (11.5-15.5); WBC 8.8 k/uL (3.8-10.6)
[2021-01-11 21:44] LABS: Albumin 4.9 g/dL (3.5-5.0); Calcium 10.1 mg/dL (8.4-10.2); Potassium 4.8 mmol/L (3.5-5.1); Total Bilirubin 0.9 mg/dL (0.2-1.3); Total Protein 7.8 g/dL (6.3-8.2)
--- NOTE | 2021-01-11 22:22 | CT ---
EXAMINATION TYPE: CT abdomen pelvis w con DATE OF EXAM: 01/11/2021 COMPARISON: 02/24/2018 HISTORY: Generalized abdominal pain and vomiting. CT DLP: 914.9 mGycm Automated exposure control for dose reduction was used. CONTRAST: Performed with IV Contrast, patient injected with 80ml mL of Isovue 300. There is subsegmental atelectasis at the lung bases. Heart size is normal. There is no pericardial ef fusion. Liver spleen stomach pancreas appear intact. There is 1.8 cm rounded fluid density in the lat eral right lobe of the liver unchanged and consistent with a cyst. The bile ducts are not dilated. Ga llbladder appears normal. There is no adrenal mass. There is normal contrast opacification of the kidneys. There is no hydronephrosis. Delayed images lili w normal renal excretion. There is no retroperitoneal adenopathy. Ureters are not dilated. Bladder di stends smoothly. There is enlarged prostate that measures 5 cm. There is prostatic calcification. There are numerous dilated fluid and gas-filled loops of small bowel. Small bowel measures up to 3.3 cm. The terminal ileum is not dilated. Transition point not identified. There is no ascites. There is no free air. There is no mesenteric edema. There is no inguinal hernia. The lumbar vertebra have normal alignment. Disc spaces are fairly normal. There is no compression fra cture. Bony pelvis is intact. Hip joints are intact. There is no hip dysplasia. IMPRESSION: Dilated proximal small bowel suggestive of partial mechanical obstruction of the distal jejunum or pr oximal ileum. This could also be ileus. Transition point not identified. Small bowel dilation is increased compared to old exam. There is some mild fibrotic changes and subsegmental atelectasis at the lung bases without change com pared to old exam.
[2021-01-11 22:28] VITALS: RESP 16
--- NOTE | 2021-01-11 22:48 | ED ---
Nausea/Vomiting/Diarrhea HPI - General Chief complaint: Nausea/Vomiting/Diarrhea Stated complaint: Abdominal Pain Time Seen by Provider: 01/11/21 20:59 Source: patient, EMS Mode of arrival: ambulatory - History of Present Illness Initial comments: 70 year-old male patient presents to the emergency department for evaluation of generalized abdominal pain and vomiting. Symptoms started last night. Reports multiple episodes of vomiting and diarrhea today. Denies any fever but states he has been chilled. Has had hernia surgery in the past. Denies any hematochezia, melena, or hematemesis. Denies any urinary symptoms. Denies recent travel or sick contacts. Denies any new medications. Patient denies any recent rash, cough, shortness of breath, chest pain, back pain, numbness, tingling, dizziness, weakness, hematuria, dysuria, urinary urgency, urinary frequency, headache, visual changes, or any other complaints. - Related Data Home Medications Medication Instructions Recorded Confirmed Tamsulosin HCl [Flomax] 0.4 mg PO DAILY 02/24/18 01/11/21 Butalb/Acetaminophen/Caffeine 1 tab PO DAILY PRN 01/11/21 01/11/21 [Esgic 50-325-40 mg Tablet] Escitalopram [Lexapro] 20 mg PO DAILY 01/11/21 01/11/21 Omeprazole [PriLOSEC] 40 mg PO DAILY 01/11/21 01/11/21 Pantoprazole Sodium [Protonix] 40 mg PO DAILY 01/11/21 01/11/21 QUEtiapine FUMARATE [SEROquel] 200 mg PO HS 01/11/21 01/11/21 buPROPion XL [Wellbutrin XL] 300 mg PO DAILY 01/11/21 01/11/21 oxyCODONE-APAP 10-325MG [Percocet 1 tab PO Q6HR PRN 01/11/21 01/11/21 10-325 mg] valACYclovir HCL [Valtrex] 1,000 mg PO DAILY 01/11/21 01/11/21 Allergies Allergy/AdvReac Type Severity Reaction Status Date / Time clonazepam [From Klonopin] Allergy Itching Verified 01/11/21 20:40 divalproex sodium AdvReac RINGING OF Verified 01/11/21 20:40 [From Depakote] EARS Review of Systems ROS Statement: Those systems with pertinent positive or pertinent negative responses have been documented in the HPI. ROS Other: All systems not noted in ROS Statement are negative. Past Medical History Past Medical History: GERD/Reflux, GI Bleed, Hypertension, Memory Impairment, Myocardial Infarction ([place]), Osteoarthritis (OA), Pneumonia, Sleep Apnea/CPAP/BIPAP Additional Past Medical History / Comment(s): "shingles >5 years ago", "born with heart murmur", "past blood rectally d/t hemmorhoids", hx migraines,past juandice/hepatitis-not sure what type."alternates between diarrhea and constitaion", cataracts. Last Myocardial Infarction Date:: 1991 History of Any Multi-Drug Resistant Organisms: None Reported Past Surgical History: Appendectomy, Orthopedic Surgery, Tonsillectomy Past Anesthesia/Blood Transfusion Reactions: No Reported Reaction Additional Past Anesthesia/Blood Transfusion Reaction / Comment(s): clausterphobia. never had a blood transfusion. Past Psychological History: ADD/ADHD, Anxiety Smoking Status: Never smoker Past Alcohol Use History: Rare Past Drug Use History: Marijuana - Past Family History Father Family Medical History: Cancer Mother Additional Family Medical History / Comment(s): rh-neg, "lung problems" General Exam General appearance: alert, in no apparent distress, other (This is a well- developed, well-nourished adult male patient in mild distress related to pain. Vital signs upon presentation are temperature 98.2F, pulse 85, respirations 22, blood pressure 175/75, pulse ox 99% on room air.) Eye exam: Present: normal appearance, PERRL, EOMI. Absent: scleral icterus, conjunctival injection, periorbital swelling ENT exam: Present: normal exam, normal oropharynx, mucous membranes moist Respiratory exam: Present: normal lung sounds bilaterally. Absent: respiratory distress, wheezes, rales, rhonchi, stridor Cardiovascular Exam: Present: regular rate, normal rhythm, normal heart sounds. Absent: systolic murmur, diastolic murmur, rubs, gallop, clicks GI/Abdominal exam: Present: soft, tenderness (Generalized), normal bowel sounds. Absent: distended, guarding, rebound, rigid Neurological exam: Present: alert, oriented X3, CN II-XII intact Psychiatric exam: Present: normal affect, normal mood Skin exam: Present: warm, dry, intact, normal color. Absent: rash Course Vital Signs 01/11/21 01/11/21 01/12/21 20:41 22:26 00:46 Temperature 98.2 F Pulse Rate 85 74 74 Respiratory 22 16 16 Rate Blood Pressure 175/75 135/95 140/73 O2 Sat by Pulse 99 93 L 96 Oximetry Medical Decision Making - Medical Decision Making 70-year-old male patient presents to the emergency department today for evaluation of generalized abdominal pain and vomiting. Physical examination did reveal generalized abdominal tenderness. He is afebrile normal vital signs. Labs reviewed and are unremarkable. CT abdomen and pelvis did show evidence for small bowel obstruction with no transition point identified possible ileus. He was given nausea medication and pain medication. Upon reevaluation is resting comfortably with no complaints. I did discuss the case with on-call surgeon Dr. Simmons, he instructs to admit to medicine and consult Dr. Rodriguez. My attending is Dr. Blevins. - Lab Data Result diagrams: 01/11/21 21:17 01/11/21 21:17 Lab Results 01/11/21 01/11/21 01/11/21 Range/Units 21:17 21:17 21:17 WBC 8.8 (3.8-10.6) k/uL RBC 5.53 (4.30-5.90) m/uL Hgb 17.8 H (13.0-17.5) gm/dL Hct 51.3 (39.0-53.0) % MCV 92.8 (80.0-100.0) fL MCH 32.1 (25.0-35.0) pg MCHC 34.6 (31.0-37.0) g/dL RDW 14.6 (11.5-15.5) % Plt Count 200 (150-450) k/uL MPV 8.7 Neutrophils % 87 % Lymphocytes % 9 % Monocytes % 2 % Eosinophils % 1 % Basophils % 0 % Neutrophils # 7.7 (1.3-7.7) k/uL Lymphocytes # 0.8 L (1.0-4.8) k/uL Monocytes # 0.2 (0-1.0) k/uL Eosinophils # 0.1 (0-0.7) k/uL Basophils # 0.0 (0-0.2) k/uL Sodium 139 (137-145) mmol/L Potassium 4.8 (3.5-5.1) mmol/L Chloride 108 H (98-107) mmol/L Carbon Dioxide 18 L (22-30) mmol/L Anion Gap 13 mmol/L BUN 33 H (9-20) mg/dL Creatinine 1.24 (0.66-1.25) mg/dL Est GFR (CKD-EPI)AfAm 68 (>60 ml/min/1.73 sqM) Est GFR (CKD-EPI)NonAf 59 (>60 ml/min/1.73 sqM) Glucose 154 H (74-99) mg/dL Plasma Lactic Acid Obi 1.4 (0.7-2.0) mmol/L Calcium 10.1 (8.4-10.2) mg/dL Total Bilirubin 0.9 (0.2-1.3) mg/dL AST 29 (17-59) U/L ALT 22 (4-49) U/L Alkaline Phosphatase 114 (38-126) U/L Troponin I (0.000-0.034) ng/mL Total Protein 7.8 (6.3-8.2) g/dL Albumin 4.9 (3.5-5.0) g/dL Lipase 65 (23-300) U/L 01/11/21 Range/Units 21:17 WBC (3.8-10.6) k/uL RBC (4.30-5.90) m/uL Hgb (13.0-17.5) gm/dL Hct (39.0-53.0) % MCV (80.0-100.0) fL MCH (25.0-35.0) pg MCHC (31.0-37.0) g/dL RDW (11.5-15.5) % Plt Count (150-450) k/uL MPV Neutrophils % % Lymphocytes % % Monocytes % % Eosinophils % % Basophils % % Neutrophils # (1.3-7.7) k/uL Lymphocytes # (1.0-4.8) k/uL Monocytes # (0-1.0) k/uL Eosinophils # (0-0.7) k/uL Basophils # (0-0.2) k/uL Sodium (137-145) mmol/L Potassium (3.5-5.1) mmol/L Chloride (98-107) mmol/L Carbon Dioxide (22-30) mmol/L Anion Gap mmol/L BUN (9-20) mg/dL Creatinine (0.66-1.25) mg/dL Est GFR (CKD-EPI)AfAm (>60 ml/min/1.73 sqM) Est GFR (CKD-EPI)NonAf (>60 ml/min/1.73 sqM) Glucose (74-99) mg/dL Plasma Lactic Acid Obi (0.7-2.0) mmol/L Calcium (8.4-10.2) mg/dL Total Bilirubin (0.2-1.3) mg/dL AST (17-59) U/L ALT (4-49) U/L Alkaline Phosphatase (38-126) U/L Troponin I <0.012 (0.000-0.034) ng/mL Total Protein (6.3-8.2) g/dL Albumin (3.5-5.0) g/dL Lipase (23-300) U/L - EKG Data -: EKG Interpreted by Me EKG Comments: EKG obtained at 2244 shows normal sinus rhythm with a sinus arrhythmia, left anterior fascicular block, ventricular rate is 70, MS interval 142, QR muslim 64, QT 398, QTC 429. No evidence of ST elevation or depression. - Radiology Data Radiology results: report reviewed, image reviewed CT abdomen and pelvis with contrast was obtained. Report was reviewed in its entirety. Impression by Dr. Timmons shows dilated proximal small bowel suggestive of partial mechanical obstruction of the distal jejunum or proximal ileum. This could also be ileus. Transition point not identified. Small bowel dilation is increased compared to old exam. There is mild fibrotic changes and subsegmental atelectasis at the lung bases without change compared to old exam. Disposition Clinical Impression: Small bowel obstruction Disposition: ADMITTED IP TO THIS [facility] Condition: Serious Decision to Admit Reason: Admit from EC Decision Date: 01/11/21 Decision Time: 22:53
[2021-01-11] MEDS ORDERED: NALOXONE 0.4 MG/ML 1 ML VIAL IV PRN (22:57)
[2021-01-11] MEDS ORDERED: ONDANSETRON 4 MG/2 ML VIAL IVP PRN (22:57)
[2021-01-12] MEDS: SODIUM CHLORIDE 0.9% 1,000 ML IV SCH ×2 (00:51→03:59)
[2021-01-12 01:59] LABS: Appearance,Urine Clear (Clear); Bilirubin,Urine Negative (Negative); Blood,Urine Negative (Negative); Color,Urine Yellow; Glucose,Urine (UA) Negative (Negative); Ketones,Urine 2+ (Negative); Leukocyte Esterase,Urine Negative (Negative); Nitrite,Urine Negative (Negative); PH, Urine 5.5 (5.0-8.0); Protein,Urine Negative (Negative); Urobilinogen,Urine <2.0 mg/dL (<2.0)
[2021-01-12 02:17] LABS: Specific Gravity,Urine >1.050 (1.001-1.035)
[2021-01-12] MEDS: HYDROmorphone 0.5 MG/0.5 ML SYRINGE IVP PRN ×2 (03:58→07:06)
[2021-01-12 07:10] VITALS: BP 144/81; PULSE 75; TEMP 98.7
== END 2021-01-12 08:18 | disposition left against medical advice (07) | DRG 390 ==
LOC: EC 20:39 → 5NMEDONC 22:34 → 4SSUR 01-12 00:24
PROVIDERS: ADMIT Internal Medicine; ATTEND Internal Medicine
DX: K56.609 Unspecified intestinal obstruction, unspecified as to partial versus complete obstruction (principal); F41.9 Anxiety disorder, unspecified; Z53.21 Procedure and treatment not carried out due to patient leaving prior to being seen by health care provider; I44.4 Left anterior fascicular block; G47.30 Sleep apnea, unspecified; I10 Essential (primary) hypertension; K21.9 Gastro-esophageal reflux disease without esophagitis; F90.9 Attention-deficit hyperactivity disorder, unspecified type; I25.2 Old myocardial infarction; G43.909 Migraine, unspecified, not intractable, without status migrainosus; H26.9 Unspecified cataract; M19.90 Unspecified osteoarthritis, unspecified site; Z79.899 Other long term (current) drug therapy; Z87.01 Personal history of pneumonia (recurrent); Z87.19 Personal history of other diseases of the digestive system; Z90.49 Acquired absence of other specified parts of digestive tract; Z90.89 Acquired absence of other organs; Z86.19 Personal history of other infectious and parasitic diseases; Z87.39 Personal history of other diseases of the musculoskeletal system and connective tissue; Z98.890 Other specified postprocedural states; Z88.8 Allergy status to other drugs, medicaments and biological substances; Z80.9 Family history of malignant neoplasm, unspecified
CPT/HCPCS: 36415; 74177; 80053; 81003; 83605; 83690; 84484; 85025; 93005; 96361; 96374; 96375; 99285

== ENCOUNTER → 2023-05-14 | Outpatient (CLI) | payer MEDICARE, OTHER ==
--- NOTE | 2023-05-14 15:06 | P.SLEEP ---
History of Present Illness DATE: 05/14/2023 CONSULTATION/NEW PATIENT EVALUATION HISTORY OF PRESENT ILLNESS/SLEEP-WAKE EVALUATION: 72 year old gentleman had been evaluated in the sleep center for possible obstructive sleep apnea hypopnea syndrome. SLEEP SCHEDULE: Usually sleep schedule from 10 PM to 67 AM. FALLING ASLEEP: Sometimes patient has difficulties with falling asleep. DURING SLEEP: Patient sleeps by himself, so no information about snoring. Patient wakes up from sleep several times with nocturia. Positive history of panic attacks, episodes of sleep walking. No history of hypnogogical hallucinations, sleep paralysis, or cataplexy. Positive history of restless leg symptoms DURING THE DAY/WAKE STATE: In the morning patient wake up tired, has difficulties to put pretension, has problems with memory and concentration. [place] sleepiness scale is 0 . Patient doesn't take naps. PAST MEDICAL HISTORY: Hypertension, COPD, BPH, depression. PAST SURGICAL HISTORY: Appendectomy, tonsillectomy, hiatal hernia repair, right foot surgery. MEDICATIONS: Lisinopril 10 mg once a day, Trelegy Ellipta inhaler, oxybutynin 10 mg once a day. SOCIAL HISTORY: Patient is using marijuana, no alcohol consumption. FAMILY HISTORY: Hypertension, asthma, cancer, lung problems. REVIEW OF SYSTEMS: Awakenings from sleep, nocturia. No fevers. No double vision. No recent chest pain. No shortness of breath. No abdominal pain. No bleeding episodes. No blood in urine. No seizure episodes. PHYSICAL EXAMINATION: GENERAL: A pleasant patient without any distress. VITAL SIGNS: BP 125/78 , HR 74 , RR 16 , weight 168 pounds, height 5 foot 4 inches, body mass index 28.8 . HEENT: PERRLA, EOMI. Evaluation of oropharynx showed tongue protrudes midline, low position of soft palate Mallampati 2, large uvula. NECK: Supple. No JVD. Thyroid is not palpable. LUNGS: Clear to percussion and to auscultation. Good air exchange. No wheezing or rhonchi. HEART: S1, S2 regular. No murmurs, gallops or rubs. ABDOMEN: Soft and nontender. Bowel sounds are present. No organomegaly appreciated. EXTREMITIES: No clubbing or cyanosis. CONDENSER TUBE TENDER: Awake, alert, and oriented x3. Cranial nerves 2 to 7 intact. There is no fasciculation or atrophy noted. No focal deficits observed. ASSESSMENT: 1. Multiple awakenings from sleep with dry mouth and nocturia, big uvula. Possible obstructive sleep apnea hypopnea syndrome 2. Restless leg symptoms. 3. History of sleep walking in the past. 4. Hypertension. 5 memory problems. 6 . History of BPH. 7. History of depression. 8. Status post hiatal hernia repair. 9 . Status post tonsillectomy. 10. Status post appendectomy. 11. Status post right foot surgery. 12. History of COPD. PLAN: 1. Polysomnography for evaluation of patient's breathing during sleep. 2. CPAP/BiPAP titration if sleep study confirms obstructive sleep apnea- hypopnea syndrome. 3. Preferable position during sleep on the side. 4. No driving if patient feels any sleepiness. Patient is aware of civil and criminal liability for unsafe driving. 5. Sleep hygiene with regular sleep time for at least 7.5-8 hours. 6. Watching weight. Thank you very much for referring this patient for consultation. Sincerely, Los Maldonado MD, PhD, FAASM. Diplomat of [place] [employer], Sleep Medicine Board by [place] [employer] [place] [employer] Development Officer of [facility] Past Medical History Past Medical History: GERD/Reflux, GI Bleed, Hypertension, Memory Impairment, Myocardial Infarction ([place]), Osteoarthritis (OA), Pneumonia, Sleep Apnea/CPAP/BIPAP Additional Past Medical History / Comment(s): "shingles >5 years ago", "born with heart murmur", "past blood rectally d/t hemmorhoids", hx migraines,past juandice/hepatitis-not sure what type."alternates between diarrhea and constitaion", cataracts. Last Myocardial Infarction Date:: 1991 History of Any Multi-Drug Resistant Organisms: None Reported Past Surgical History: Appendectomy, Hernia Repair, Orthopedic Surgery, Tonsillectomy Additional Past Surgical History / Comment(s): right foot surgery Past Anesthesia/Blood Transfusion Reactions: No Reported Reaction Additional Past Anesthesia/Blood Transfusion Reaction / Comment(s): clausterphobia. never had a blood transfusion. Past Psychological History: ADD/ADHD, Anxiety Smoking Status: Never smoker Past Alcohol Use History: Rare Past Drug Use History: Marijuana - Past Family History Father Family Medical History: Cancer Mother Additional Family Medical History / Comment(s): rh-neg, "lung problems" Medications and Allergies Home Medications Medication Instructions Recorded Confirmed Type Tamsulosin HCl [Flomax] 0.4 mg PO DAILY 02/24/18 01/11/21 History Butalb/Acetaminophen/Caffeine 1 tab PO DAILY PRN 01/11/21 01/11/21 History [Esgic 50-325-40 mg Tablet] Escitalopram [Lexapro] 20 mg PO DAILY 01/11/21 01/11/21 History Omeprazole [PriLOSEC] 40 mg PO DAILY 01/11/21 01/11/21 History Pantoprazole Sodium [Protonix] 40 mg PO DAILY 01/11/21 01/11/21 History QUEtiapine FUMARATE [SEROquel] 200 mg PO HS 01/11/21 01/11/21 History buPROPion XL [Wellbutrin XL] 300 mg PO DAILY 01/11/21 01/11/21 History oxyCODONE-APAP 10-325MG [Percocet 1 tab PO Q6HR PRN 01/11/21 01/11/21 History 10-325 mg] valACYclovir HCL [Valtrex] 1,000 mg PO DAILY 01/11/21 01/11/21 History Cephalexin [Keflex] 500 mg PO Q6HR 5 Days #20 cap 07/11/22 Rx Ibuprofen [Motrin] 800 mg PO Q8HR PRN #30 tab 07/11/22 Rx Allergies Allergy/AdvReac Type Severity Reaction Status Date / Time clonazepam [From Klonopin] Allergy Itching Verified 07/11/22 12:38 divalproex sodium AdvReac RINGING OF Verified 07/11/22 12:38 [From Depakote] EARS Sleep Note - Sleep Note Sleep Note: Temperature: Pulse Rate: Respiratory Rate: Blood Pressure: SpO2: Height: Weight: BMI: Neck Circumference:
== END ==
LOC: 3 N SLEEP 14:06
PROVIDERS: ATTEND Internal Medicine
DX: G25.81 Restless legs syndrome (principal); I10 Essential (primary) hypertension; N40.0 Benign prostatic hyperplasia without lower urinary tract symptoms; G47.8 Other sleep disorders; R41.3 Other amnesia; R68.2 Dry mouth, unspecified; R35.1 Nocturia; F32.A Depression, unspecified; F12.90 Cannabis use, unspecified, uncomplicated; J44.9 Chronic obstructive pulmonary disease, unspecified; Z98.890 Other specified postprocedural states; Z90.89 Acquired absence of other organs; Z90.49 Acquired absence of other specified parts of digestive tract; Z79.899 Other long term (current) drug therapy; Z88.8 Allergy status to other drugs, medicaments and biological substances; Z87.891 Personal history of nicotine dependence
CPT/HCPCS: 99211

== ENCOUNTER → 2023-09-08 | Outpatient (CLI) | payer MEDICARE, OTHER ==
[2023-09-08 22:29] LABS: Basophils # (A) 0.02 X 10*3/uL (0.00-0.10); Basophils % (A) 0.4 %; Eosinophils # (A) 0.05 X 10*3/uL (0.04-0.35); HCT 48.3 % (39.6-50.0); HGB 15.7 g/dL (13.0-17.0); Lymphocytes % (A) 26.3 %; MCHC 32.5 g/dL (32.0-37.0); MCV 86.3 FL (80.0-97.0); Mean Platelet Volume 11.1 FL (9.5-12.2); Monocytes # (A) 0.37 X 10*3/uL (0.20-1.00); Monocytes % (A) 7.5 %; NRBC Per 100 WBC 0 X 10*3/uL (0.00-0.01); Neutrophils % (A) 64.6 %; Platelet Count 164 X 10*3/uL (140-440); RDW 15.3 % (11.5-14.5); WBC 4.95 X 10*3/uL (4.50-10.00)
== END | disposition home or self-care (01) ==
LOC: LABPAT 12:27
PROVIDERS: ATTEND Surgery
DX: Z01.812 Encounter for preprocedural laboratory examination (principal); K40.90 Unilateral inguinal hernia, without obstruction or gangrene, not specified as recurrent; K43.2 Incisional hernia without obstruction or gangrene
CPT/HCPCS: 85025; 86850; 86900; 86901; 93005

== ENCOUNTER 2023-09-16 05:36 | Day surgery (SDC) | payer MEDICARE, OTHER ==
[2023-09-12 12:34] VITALS: BMI 26.6
[2023-09-16] MEDS: ACETAMINOPHEN TAB 500 MG TAB PO PRN (06:50)
[2023-09-16] MEDS: DEXAMETHASONE SOD PHOSPHATE 4 MG/ML 1 ML VIAL IV ONE (06:50)
[2023-09-16] MEDS: ONDANSETRON 4 MG/2 ML VIAL IVP ONE (06:50)
[2023-09-16] MEDS: LACTATED RINGERS 1,000 ML IV SCH (06:50)
[2023-09-16] MEDS ORDERED: HYDROmorphone 0.5 MG/0.5 ML SYRINGE IVP PRN (07:00)
[2023-09-16] MEDS: MIDAZOLAM 2 MG/2 ML VIAL IVP ONE (07:00)
[2023-09-16] MEDS: HEPARIN SODIUM,PORCINE 5,000 UNIT/ML 1 ML VIAL SQ PRN (07:13)
[2023-09-16] MEDS: LIDOCAINE 1%-EPI 1:100,000 20 ML VIAL SQ ONE ×2 (07:21→07:56)
[2023-09-16] MEDS ORDERED: ROPIVACAINE 5 MG/ML 30 ML VIAL ONE (07:35)
[2023-09-16] MEDS ORDERED: SUCCINYLCHOLINE CHLORIDE 200 MG/10 ML VIAL IV ONE (07:35)
[2023-09-16] MEDS ORDERED: fentaNYL (PF) 50 MCG/ML 2 ML AMP ONE (07:35)
[2023-09-16] MEDS ORDERED: GLYCOPYRROLATE 0.2 MG/ML 2 ML VIAL ONE (07:35)
[2023-09-16] MEDS ORDERED: HYDROmorphone (PF) 1 MG/ML ONE (07:35)
[2023-09-16] MEDS ORDERED: DEXAMETHASONE SOD PHOSPHATE 4 MG/ML 1 ML VIAL ONE (07:35)
[2023-09-16] MEDS ORDERED: MIDAZOLAM 2 MG/2 ML VIAL ONE (07:35)
[2023-09-16] MEDS ORDERED: NEOSTIGMINE 1 MG/ML 10 ML VIAL ONE (07:35)
[2023-09-16] MEDS ORDERED: ROCURONIUM 10 MG/ML (5 ML VIAL) IV ONE (07:35)
[2023-09-16] MEDS ORDERED: SODIUM CHLORIDE 0.9% (PF) 10 ML VIAL ONE (07:35)
[2023-09-16] MEDS ORDERED: PROPOFOL 10 MG/ML 20 ML VIAL IV ONE (07:35)
[2023-09-16] MEDS ORDERED: KETAMINE HCL IN 0.9 % NACL 50 MG/5 ML SYRINGE ONE (07:35)
[2023-09-16] MEDS ORDERED: LIDOCAINE 1% INJ 10MG/ML (20 ML MDV) ONE (07:35)
[2023-09-16] MEDS: LACTATED RINGERS 1,000 ML IV ONE (08:29)
--- NOTE | 2023-09-16 08:41 | P.OP ---
Date of Procedure: 09/16/23 Preoperative Diagnosis: right inguinal hernia Postoperative Diagnosis: bilateral inguinal hernia Cord lipoma left Procedure(s) Performed: laparoscopic robotic system repair of bilateral inguinal hernia Left cord lipoma Transversus abdominis plane block Anesthesia: HERMINIO Surgeon: Rashaun oRdriguez Estimated Blood Loss (ml): 5 Pathology: none sent Condition: stable Disposition: PACU Description of Procedure: The patient's placed on the operating table in the supine position. The patient received general anesthesia. The patient's abdomen was prepped and draped in usual sterile fashion. The skin was anesthetized 1% local Xylocaine at the incision sites. Using an 11 blade a skin incision was made at the umbilicus. The fascia was grasped with a Peggy and then the peritoneal cavity was entered with the Veress needle. Position of the Veress needle was confirmed with a positive drop test. After adequate insufflation a 5 mm trocar was placed into the peritoneal cavity. The Laparoscope was placed the peritoneal cavity. And a robotic 8 mm trocar was placed in the right lateral position and then another 8 mm robotic trochars placed in the left lateral position. The original 5 mm trocar was exchanged for a 12 mm trocar. A four-quadrant transversus abdominis plane block was performed with 1% local Xylocaine. The patient was placed in reverse Trendelenburg and then the patient was docked to the robot. Next the peritoneum over top of the right inguinal hernia was incised and then using blunt and sharp dissection and electrocautery the hernia sac was dissected free from the floor of the inguinal canal. The hernia sac was completely reduced into the peritoneal cavity. And then using the Pro foxer mesh the hernia was repaired. The peritoneum was then sutured with 20V lock suture. Next the peritoneum over top of the left inguinal hernia was incised and then using blunt and sharp dissection and electrocautery the hernia sac was dissected free from the floor of the inguinal canal. the cord lipoma was dissected free sent to pathology.The hernia sac was completely reduced into the peritoneal cavity. And then using the Pro foxer mesh the hernia was repaired. The peritoneum was then sutured with 20V lock suture. The patient was then undocked the robot. The needle was withdrawn from the peritoneal cavity. The umbilical trocar site was closed with 0 Ethibond suture. The skin was closed interrupted 3-0 Monocryl suture. Dermabond dressing was applied. Patient was sent to recovery in stable condition.
[2023-09-16 09:02] VITALS: TEMP 97
[2023-09-16 10:37] VITALS: BP 123/72; PULSE 65
[2023-09-16 10:38] VITALS: RESP 18
--- NOTE | 2023-09-17 13:40 | P.ANPRN ---
Procedure Note - Anesthesia - Nerve Block Performed Bilateral Erector Spinae Single Time Out Performed: Yes Date of Procedure: 09/17/23 Procedure Start Time: 07:00 Procedure Stop Time: :06 Location of Patient: PreOp Indication: Acute Post-Operative Pain, Requested by Surgeon Sedation Type: Sedate with meaningful contact maintained Preparation: Sterile Prep Position: Prone Needle Types: Pajunk Needle Gauge: 21 Ultrasound used to visualize needle placement: Yes Ultrasound used to observe medication spread: Yes Blood Aspirated: No Pain Paresthesia on Injection Noted: No Resistance on Injection: Normal Image Stored and Saved: Yes Events: Uneventful and Well Tolerated (Ropivacaine 0.5% 15 cc plus dexamethasone 4 mg plus normal saline 10 cc given bilaterally at L1)
== END 2023-09-16 11:00 | disposition home or self-care (01) ==
LOC: OR 05:36
PROVIDERS: ATTEND Surgery
DX: K40.20 Bilateral inguinal hernia, without obstruction or gangrene, not specified as recurrent (principal); G89.18 Other acute postprocedural pain; D17.6 Benign lipomatous neoplasm of spermatic cord; I10 Essential (primary) hypertension; G47.33 Obstructive sleep apnea (adult) (pediatric); F03.90 Unspecified dementia, unspecified severity, without behavioral disturbance, psychotic disturbance, mood disturbance, and anxiety; K21.9 Gastro-esophageal reflux disease without esophagitis; K76.9 Liver disease, unspecified; Z90.49 Acquired absence of other specified parts of digestive tract; Z79.899 Other long term (current) drug therapy; Z88.8 Allergy status to other drugs, medicaments and biological substances; Z98.890 Other specified postprocedural states
CPT/HCPCS: 49650; 64999; 88304; C1781 ×2; J2250; J0330; J1644; J1100; J2710; J0690; J2405; J2001; J3010; J1170; J2795; J2704

== ENCOUNTER 2024-02-16 19:52 | Inpatient (IN) | payer MEDICARE, MEDICAID ==
[2024-02-16 21:13] LABS: Appearance,Urine Cloudy (Clear); Bilirubin,Urine Negative (Negative); Blood,Urine Trace (Negative); Color,Urine Colorless; Glucose,Urine (UA) Negative (Negative); Ketones,Urine Negative (Negative); Leukocyte Esterase,Urine Large (Negative); Mucus,Urine Rare /hpf; Nitrite,Urine Positive (Negative); Protein,Urine Negative (Negative); RBC,Urine 11 /hpf (0-5); Squamous Epithelial Cell,Urine 1 /hpf (0-4); Urobilinogen,Urine <2.0 mg/dL (<2.0); WBC,Urine >182 /hpf (0-5)
--- NOTE | 2024-02-16 21:32 | ED ---
General Adult HPI - General Chief complaint: Psychiatric Symptoms Stated complaint: Mental Health Time Seen by Provider: 02/16/24 21:08 Source: patient Mode of arrival: ambulatory Limitations: no limitations - History of Present Illness Initial comments: Dictation was produced using [employer] dictation software. please excuse any grammatical, word or spelling errors. Chief Complaint: 73-year-old male presents emergency department for homicidal ideation History of Present Illness: Patient 73-year-old male with multiple comorbidities presents to the emergency department for homicidal ideation. Patient states he had checked himself in for this in the past. Patient has not been taking his medications. States that he wants to hurt people. Does not have a specific plan. Patient states that he has chronic gait. Denies any fever, chills or night sweats. The ROS documented in this emergency department record has been reviewed and confirmed by me. Those systems with pertinent positive or negative responses have been documented in the HPI. All other systems are other negative and/or noncontributory. - Related Data Home Medications Medication Instructions Recorded Confirmed Tamsulosin HCl [Flomax] 0.4 mg PO DAILY 02/24/18 02/17/24 Pantoprazole Sodium [Protonix] 40 mg PO DAILY 01/11/21 02/17/24 oxyCODONE-APAP 10-325MG [Percocet 1 tab PO TID PRN 01/11/21 02/17/24 10-325 mg] Acyclovir 800 mg PO DAILY 09/12/23 02/17/24 Budesonide/Glycopyr/Formoterol 1 puff INHALATION RT-DAILY 09/12/23 02/17/24 [Breztri Aerosphere Inhaler] Cetirizine HCl 10 mg PO HS 09/12/23 02/17/24 DULoxetine HCL [Cymbalta] 30 mg PO DAILY 09/12/23 02/17/24 DULoxetine HCL [Cymbalta] 60 mg PO DAILY 09/12/23 02/17/24 Finasteride [Proscar] 5 mg PO DAILY 09/12/23 02/17/24 guanFACINE HCL [guanFACINE HCL ER] 2 mg PO HS 09/12/23 02/17/24 hydrOXYzine HCL 25 mg PO TID PRN 09/12/23 02/17/24 Albuterol Inhaler [Ventolin Hfa 2 puff INHALATION RT-QID PRN 02/17/24 02/17/24 Inhaler] Fluticasone/Umeclidin/Vilanter 1 puff INHALATION RT-DAILY 02/17/24 02/17/24 [Saranya Cejata 100-62.5-25] busPIRone HCl [Buspar] 5 mg PO BID 02/17/24 02/17/24 Allergies Allergy/AdvReac Type Severity Reaction Status Date / Time clonazepam [From Klonopin] Allergy Itching Verified 02/17/24 10:34 divalproex sodium AdvReac RINGING OF Verified 02/17/24 10:34 [From Depakote] EARS Review of Systems ROS Statement: Those systems with pertinent positive or pertinent negative responses have been documented in the HPI. ROS Other: All systems not noted in ROS Statement are negative. Past Medical History Past Medical History: GERD/Reflux, GI Bleed, Hearing Disorder / Deafness, Hypertension, Liver Disease, Memory Impairment, Myocardial Infarction ([place]), Musculoskeletal Disorder, Osteoarthritis (OA), Pneumonia, Respiratory Disorder, Sleep Apnea/CPAP/BIPAP Additional Past Medical History / Comment(s): Hx Shingles > 5 yrs ago. "Recent Shingles outbreak (09/11/23) just above butt crack." "Cannot remember things very good anymore." Hard of hearing. "Born with heart murmur". Hx hemmorhoids". Hx migraines. Hx jaundice/Hepatitis-not sure what type." Alternating diarrhea and constitaion. No CPAP use. Legs cramps at night. Bilateral carpal tunnel. bilateral hip pain daily. Last Myocardial Infarction Date:: 1991 History of Any Multi-Drug Resistant Organisms: None Reported Past Surgical History: Appendectomy, Hernia Repair, Orthopedic Surgery, Tonsill ectomy Additional Past Surgical History / Comment(s): Right foot surgery, bilateral cataracts removed, bilateral inguinal hernia repair. Past Anesthesia/Blood Transfusion Reactions: No Reported Reaction Additional Past Anesthesia/Blood Transfusion Reaction / Comment(s): Clausterphobia. Never had a blood transfusion. Past Psychological History: ADD/ADHD, Anxiety, Schizophrenia Smoking Status: Former smoker Past Alcohol Use History: Rare Past Drug Use History: Marijuana - Past Family History Father Family Medical History: Cancer Mother Additional Family Medical History / Comment(s): RH neg, "lung problems." General Exam - General Exam Comments Initial Comments: General: Well-appearing, nontoxic, no acute distress. Head: Normocephalic, atraumatic Eyes: PERRLA, EOMI ENT: Airway patent Chest: Nonlabored breathing Skin: No visual rash, normal skin tone Neuro: Alert and oriented 3 Musculoskeletal: No gross abnormalities Psych: Anxious Limitations: no limitations Course Vital Signs 02/16/24 02/17/24 20:13 09:27 Temperature 97.4 F L 97.9 F Pulse Rate 72 65 Respiratory 36 H 18 Rate Blood Pressure 158/98 150/74 O2 Sat by Pulse 97 98 Oximetry Medical Decision Making - Medical Decision Making Was pt. sent in by a medical professional or institution (, PA, RN CLINICAL COORDINATOR, urgent care, hospital, or [facility]...) When possible be specific @ -No Did you speak to anyone other than the patient for history (EMS, parent, family, police, friend...)? What history was obtained from this source @ -No Did you review nursing and triage notes (agree or disagree)? Why? @ -I reviewed and agree with nursing and triage notes Were old charts reviewed (outside hosp., previous admission, EMS record, old EKG, old radiological studies, urgent care reports/EKG's, m[facility] records)? Report findings @ -No old charts were reviewed Differential Diagnosis (chest pain, altered mental status, abdominal pain women, abdominal pain men, vaginal bleeding, musculoskeletal, weakness, fever, dyspnea, syncope, headache, dizziness, GI bleed, back pain, seizure, CVA, palpatations, mental health)? @ -Differential Mental Health: Depression, anxiety, bipolar, psychosis, schizophrenia, borderline personality, situational depression, adjustment disorder, behavioral disorder, brain tumor, malingering, substance abuse, encephalopathy, medication reaction, dementia, hypothyroidism, degenerative neurologic disorder, lupus.... This is not meant to be all-inclusive list EKG interpreted by me (3pts min.). @ -None done X-rays interpreted by me (1pt min.). @ -None done CT interpreted by me (1pt min.). @ -None done U/S interpreted by me (1pt. min.). @ -None done What testing was considered but not performed or refused? (CT, X-rays, U/S, labs)? Why? @ -None What meds were considered but not given or refused? Why? @ -None Was smoking cessation discussed for >3mins.? @ -No Were there social determinants of health that impacted care today? How? (Homelessness, low income, unemployed, alcoholism, drug addiction, transportatio n, low edu. Level, literacy, decrease access to med. care, senior living, rehab)? @ -No Was there de-escalation of care discussed even if they declined (Discuss DNR or withdrawal of care, Hospice)? DNR status @ -No What co-morbidities impacted this encounter? (DM, HTN, Smoking, COPD, CAD, Cancer, CVA, ARF, Chemo, Hep., AIDS, mental health diagnosis, sleep apnea, morbid obesity)? @ -None Was patient admitted / discharged? Hospital course, mention meds given and route, prescriptions, significant lab abnormalities, going to OR and other pertinent info. @ -73-year-old male presents with homicidal ideation. He reports history of psychiatric illness. States he is homicidal without specific plan. Vital signs stable. Patient anxious at the bedside. ATP test were ordered. Patient urinalysis positive for urinary tract infection. Likely E. coli given that it is nitrite positive. Patient antibiotics. Medically cleared for EPS evaluation. Patient evaluated by EPS nurse. Patient complained of urinary retention. Patient does take Flomax. Bladder scan shows urinary retention. Summers catheter placed. Patient evaluated by EPS recommending geriatric psych transfer. Patient will be boarding in the ER pending transfer Did you discuss the management of the patient with other professionals (professionals i.e. , PA, RN CLINICAL COORDINATOR, lab, RT, psych nurse, social sciences instructor, finish molder, t eacher, special officer automat, pillowcase sewer)? Give summary @ -No Was critical care preformed (if so, how long)? @ -No Undiagnosed new problem with uncertain prognosis? @ -No Drug Therapy requiring intensive monitoring for toxicity (Heparin, Nitro, Insulin, Cardizem)? @ -No Were any procedures done? @ -No Diagnosis/symptom? Acute, or Chronic, or Acute on Chronic? Uncomplicated (without systemic symptoms) or Complicated (systemic symptoms)? @ -Homicidal ideation, UTI urinary retention Side effects of treatment? @ -No Exacerbation, Progression, or Severe Exacerbation? @ -No Poses a threat to life or bodily function? How? (Chest pain, USA, SC, pneumonia, PE, COPD, DKA, ARF, appy, cholecystitis, CVA, Diverticulitis, Homicidal, Suicidal, threat to staff... and all critical care pts) @ -yes Chart reviewed at a later date showing that patient was admitted to mental health unit - Lab Data Result diagrams: 02/17/24 02:45 02/17/24 02:45 Lab Results 02/16/24 02/16/24 02/17/24 Range/Units 20:51 20:53 02:45 WBC 11.2 H (3.8-10.6) k/uL RBC 5.28 (4.30-5.90) m/uL Hgb 15.9 (13.0-17.5) gm/dL Hct 48.3 (39.0-53.0) % MCV 91.5 (80.0-100.0) fL MCH 30.1 (25.0-35.0) pg MCHC 32.9 (31.0-37.0) g/dL RDW 13.4 (11.5-15.5) % Plt Count 193 (150-450) k/uL MPV 8.2 Neutrophils % 76 % Lymphocytes % 16 % Monocytes % 6 % Eosinophils % 1 % Basophils % 0 % Neutrophils # 8.5 H (1.3-7.7) k/uL Lymphocytes # 1.8 (1.0-4.8) k/uL Monocytes # 0.7 (0-1.0) k/uL Eosinophils # 0.1 (0-0.7) k/uL Basophils # 0.0 (0-0.2) k/uL Sodium (137-145) mmol/L Potassium (3.5-5.1) mmol/L Chloride (98-107) mmol/L Carbon Dioxide (22-30) mmol/L Anion Gap mmol/L BUN (9-20) mg/dL Creatinine (0.66-1.25) mg/dL Est GFR (CKD-EPI)AfAm (>60 ml/min/1.73 sqM) Est GFR (CKD-EPI)NonAf (>60 ml/min/1.73 sqM) Glucose (74-99) mg/dL Calcium (8.4-10.2) mg/dL Total Bilirubin (0.2-1.3) mg/dL AST (17-59) U/L ALT (4-49) U/L Alkaline Phosphatase (38-126) U/L Total Protein (6.3-8.2) g/dL Albumin (3.5-5.0) g/dL Urine Color Colorless Urine Appearance Cloudy (Clear) Urine pH 6.0 (5.0-8.0) Ur Specific [place] 1.020 (1.001-1.035) Urine Protein Negative (Negative) Urine Glucose (UA) Negative (Negative) Urine Ketones Negative (Negative) Urine Blood Trace H (Negative) Urine Nitrite Positive (Negative) Urine Bilirubin Negative (Negative) Urine Urobilinogen <2.0 (<2.0) mg/dL Ur Leukocyte Esterase Large H (Negative) Urine RBC 11 H (0-5) /hpf Urine WBC >182 H (0-5) /hpf Urine WBC Clumps Occasional H (None) /hpf Ur Squamous Epith Cells 1 (0-4) /hpf Urine Mucus Rare H (None) /hpf Urine Opiates Screen Negative (Negative) Ur Oxycodone Screen (NotDetected) Urine Methadone Screen Negative (Negative) Ur Propoxyphene Screen Negative (Negative) Ur Barbiturates Screen (NotDetected) Urine Barbiturates Negative (Negative) U Tricyclic Antidepress (NotDetected) Ur Phencyclidine Scrn Negative (Negative) Ur Amphetamine Screen Negative (Negative) Ur Amphetamines Screen (NotDetected) U Methamphetamines Scrn (NotDetected) U Benzodiazepines Scrn Negative (Negative) Urine Cocaine Screen Negative (Negative) U Cannabinoids Screen Positive A (Negative) U Marijuana (THC) Screen (NotDetected) Urine Alcohol Negative (Negative) U Creatinine Drug Scrn 57.7 (>=20.0) mg/dL Influenza Type A (PCR) (Not Detectd) Influenza Type B (PCR) (Not Detectd) RSV (PCR) (Not Detectd) SARS-CoV-2 (PCR) (Not Detectd) 02/17/24 02/17/24 02/17/24 Range/Units 02:45 02:45 02:49 WBC (3.8-10.6) k/uL RBC (4.30-5.90) m/uL Hgb (13.0-17.5) gm/dL Hct (39.0-53.0) % MCV (80.0-100.0) fL MCH (25.0-35.0) pg MCHC (31.0-37.0) g/dL RDW (11.5-15.5) % Plt Count (150-450) k/uL MPV Neutrophils % % Lymphocytes % % Monocytes % % Eosinophils % % Basophils % % Neutrophils # (1.3-7.7) k/uL Lymphocytes # (1.0-4.8) k/uL Monocytes # (0-1.0) k/uL Eosinophils # (0-0.7) k/uL Basophils # (0-0.2) k/uL Sodium 135 L (137-145) mmol/L Potassium 4.1 (3.5-5.1) mmol/L Chloride 109 H (98-107) mmol/L Carbon Dioxide 18 L (22-30) mmol/L Anion Gap 8 mmol/L BUN 24 H (9-20) mg/dL Creatinine 1.12 (0.66-1.25) mg/dL Est GFR (CKD-EPI)AfAm 75 (>60 ml/min/1.73 sqM) Est GFR (CKD-EPI)NonAf 65 (>60 ml/min/1.73 sqM) Glucose 112 H (74-99) mg/dL Calcium 9.9 (8.4-10.2) mg/dL Total Bilirubin 1.5 H (0.2-1.3) mg/dL AST 29 (17-59) U/L ALT 21 (4-49) U/L Alkaline Phosphatase 113 (38-126) U/L Total Protein 6.6 (6.3-8.2) g/dL Albumin 4.1 (3.5-5.0) g/dL Urine Color Urine Appearance (Clear) Urine pH (5.0-8.0) Ur Specific [place] (1.001-1.035) Urine Protein (Negative) Urine Glucose (UA) (Negative) Urine Ketones (Negative) Urine Blood (Negative) Urine Nitrite (Negative) Urine Bilirubin (Negative) Urine Urobilinogen (<2.0) mg/dL Ur Leukocyte Esterase (Negative) Urine RBC (0-5) /hpf Urine WBC (0-5) /hpf Urine WBC Clumps (None) /hpf Ur Squamous Epith Cells (0-4) /hpf Urine Mucus (None) /hpf Urine Opiates Screen Not Detected (Negative) Ur Oxycodone Screen Not Detected (NotDetected) Urine Methadone Screen Not Detected (Negative) Ur Propoxyphene Screen (Negative) Ur Barbiturates Screen Not Detected (NotDetected) Urine Barbiturates (Negative) U Tricyclic Antidepress Not Detected (NotDetected) Ur Phencyclidine Scrn Not Detected (Negative) Ur Amphetamine Screen (Negative) Ur Amphetamines Screen Not Detected (NotDetected) U Methamphetamines Scrn Not Detected (NotDetected) U Benzodiazepines Scrn Not Detected (Negative) Urine Cocaine Screen Not Detected (Negative) U Cannabinoids Screen (Negative) U Marijuana (THC) Screen Detected H (NotDetected) Urine Alcohol (Negative) U Creatinine Drug Scrn (>=20.0) mg/dL Influenza Type A (PCR) Not Detected (Not Detectd) Influenza Type B (PCR) Not Detected (Not Detectd) RSV (PCR) Not Detected (Not Detectd) SARS-CoV-2 (PCR) Not Detected (Not Detectd) Disposition Clinical Impression: Homicidal ideation Disposition: ADMITTED IP TO THIS HOSP Condition: Fair
[2024-02-16] MEDS: cefTRIAXone 1,000 MG VIAL (IM USE) IM STA (21:55)
[2024-02-16] MEDS: CIPROFLOXACIN HCL 500 MG TAB PO SCH (21:57)
[2024-02-17] MEDS: HYDROcodone/APAP 10-325MG 1 EACH TAB PO STA (00:13)
[2024-02-17] MEDS: diphenhydrAMINE 50 MG CAP PO STA (00:51)
[2024-02-17 02:49] LABS: Urine Alcohol Negative (Negative); Urine Barbiturate Negative (Negative); Urine Cocaine Negative (Negative); Urine Methadone Negative (Negative); Urine Opiates Negative (Negative); Urine Phencyclidine Negative (Negative)
[2024-02-17 02:58] LABS: Basophils % (A) 0 %; Eosinophils # (A) 0.1 k/uL (0-0.7); Eosinophils % (A) 1 %; HCT 48.3 % (39.0-53.0); HGB 15.9 gm/dL (13.0-17.5); Lymphocytes # (A) 1.8 k/uL (1.0-4.8); Lymphocytes % (A) 16 %; MCH 30.1 pg (25.0-35.0); MCHC 32.9 g/dL (31.0-37.0); MCV 91.5 fL (80.0-100.0); Mean Platelet Volume 8.2; Monocytes # (A) 0.7 k/uL (0-1.0); Monocytes % (A) 6 %; Neutrophils # (A) 8.5 k/uL (1.3-7.7); Neutrophils % (A) 76 %; Platelet Count 193 k/uL (150-450); RBC 5.28 m/uL (4.30-5.90); RDW 13.4 % (11.5-15.5); WBC 11.2 k/uL (3.8-10.6)
[2024-02-17 03:17] LABS: ALT 21 U/L (4-49); AST 29 U/L (17-59); African American GFR (CKD) 75 (>60 ml/min/1.73 sqM); Albumin 4.1 g/dL (3.5-5.0); Alkaline Phosphatase 113 U/L (38-126); Anion Gap 8 mmol/L; Blood Urea Nitrogen 24 mg/dL (9-20); Calcium 9.9 mg/dL (8.4-10.2); Carbon Dioxide 18 mmol/L (22-30); Chloride 109 mmol/L (98-107); Glucose 112 mg/dL (74-99); Non-African American GFR(CKD) 65 (>60 ml/min/1.73 sqM); Potassium 4.1 mmol/L (3.5-5.1); Sodium 135 mmol/L (137-145); Total Bilirubin 1.5 mg/dL (0.2-1.3); Total Protein 6.6 g/dL (6.3-8.2)
[2024-02-17] MEDS: ONDANSETRON ODT 8 MG TAB.RAPDIS PO STA (03:21)
[2024-02-17] MEDS: ONDANSETRON 4 MG ODT STARTER PACK 2 TAB BTL PO STA (03:23)
[2024-02-17 03:46] LABS: Amphetamine Screen,Urine Not Detected (NotDetected); Barbiturate Screen,Urine Not Detected (NotDetected); Benzodiazepines Screen,Urine Not Detected (NotDetected); Cocaine Screen,Urine Not Detected (NotDetected); Methadone Screen, Urine Not Detected (NotDetected); Opiate Screen,Urine Not Detected (NotDetected); Phencyclidine Screen,Urine Not Detected (NotDetected); Tricyclic Antidepressant,Urine Not Detected (NotDetected); Urn Cannabinoid Scrn Detected (NotDetected)
[2024-02-17 03:47] LABS: Oxycodone Screen, Urine Not Detected (NotDetected)
[2024-02-17] MEDS ORDERED: OLANZapine 10 MG VIAL IM PRN (14:52)
[2024-02-17] MEDS ORDERED: ACETAMINOPHEN TAB 325 MG TAB PO PRN (14:52)
[2024-02-17] MEDS ORDERED: ALBUTEROL INHALER 60 PUFF/8 GM INHALER (MHU) INHALATION PRN (14:55)
[2024-02-17 17:14] LABS: Appearance,Urine Cloudy (Clear); Bilirubin,Urine Negative (Negative); Blood,Urine Moderate (Negative); Color,Urine Light Yellow; Glucose,Urine (UA) Negative (Negative); Ketones,Urine Negative (Negative); Leukocyte Esterase,Urine Large (Negative); Nitrite,Urine Negative (Negative); PH, Urine 7.5 (5.0-8.0); Protein,Urine Trace (Negative); RBC,Urine 43 /hpf (0-5); Specific Gravity,Urine 1.019 (1.001-1.035); Urobilinogen,Urine <2.0 mg/dL (<2.0); WBC,Urine 61 /hpf (0-5)
[2024-02-17] MEDS: guanFACINE 1 MG TAB PO SCH (20:12)
[2024-02-17] MEDS: busPIRone HCl 5 MG TAB PO SCH (20:13)
[2024-02-17] MEDS: LORATADINE 10 MG TAB PO SCH (20:13)
[2024-02-17] MEDS: oxyCODONE-APAP 10-325MG 1 EACH TAB PO PRN (20:59)
[2024-02-17] MEDS: MAG HYDROX/AL HYDROX/SIMETH 355 ML BOTTLE PO PRN (21:00)
--- NOTE | 2024-02-18 00:28 | P.CONS ---
History of Present Illness - Reason for Consult Consult date: 02/17/24 - History of Present Illness The patient is a 73-year-old male with a PMH of COPD, tobacco abuse, and BPH who presented to the emergency room with complaints of homicidal ideation. Patient had reported to the emergency room that he had wanted to hurt people although he had no specific plan. H he was admitted to mental health unit where he was seen and evaluated while accompanied by a MHU RN. The patient does endorse chronic mild abdominal discomfort with bouts of diarrhea and constipation. Denies experiencing chest discomfort but does report some mild chronic exertional shortness of breath which he attributes to his COPD. Denies experiencing fever, chills, cough. Patient also denies urinary complaints. Review of systems: Pertinent positives and negatives as discussed in HPI, a complete review of systems was performed and all other systems are negative. Physical examination: General: non toxic, no distress, appears at stated age, normal weight Derm: no unusual rashes/lesions, no unusual ecchymoses, warm, dry Head: atraumatic, normocephalic, symmetric Eyes: EOMI, no lid lag, anicteric sclera ENT: Nose and ears atraumatic, no thrush, no pharyngeal erythema Neck: trachea midline, supple Mouth: no lip lesion, mucus membranes moist Cardiovascular: S1S2 reg, no murmur, no edema Lungs: CTA bilateral, no rhonchi, no rales , no accessory muscle use Abdominal: soft, nontender to palpation, no guarding Ext: no gross muscle atrophy, no contractures, Neuro: No gross focal neuro deficits noted Psych: Alert, oriented, appropriate affect Assessment: Chronic conditions: COPD, BPH Leukocytosis, no sign of active infection at this time Marijuana abuse Homicidal ideation Imaging: EKG reviewed showing sinus rhythm with short TN interval at 67 bpm with a left intrafascicular block with diffuse T wave inversion as reviewed by me. Data Review: Laboratory evaluation was remarkable for leukocytosis of 11.2, sodium 135, chloride 109, CO2 18, BUN 24, glucose 112, total bilirubin 1.5 with UA showing 4 3 RBCs and 61 WBCs Plan: Resume patient's home inhalers and Flomax Monitor CBC for resolution of leukocytosis Advised on importance of patient's marijuana use Defer management of homicidal ideation to the primary psychiatry service Thank you for allowing us to participate in the care of this patient. We will follow peripherally. Do not hesitate to contact us with questions. Someone can be reached from the [facility] hospitalist group at all hours of the day at [phone]. Past Medical History Past Medical History: GERD/Reflux, GI Bleed, Hearing Disorder / Deafness, Hypertension, Liver Disease, Memory Impairment, Myocardial Infarction ([place]), Musculoskeletal Disorder, Osteoarthritis (OA), Pneumonia, Respiratory Disorder, Sleep Apnea/CPAP/BIPAP Additional Past Medical History / Comment(s): Hx Shingles > 5 yrs ago. "Recent Shingles outbreak (09/11/23) just above butt crack." "Cannot remember things very good anymore." Hard of hearing. "Born with heart murmur". Hx hemmorhoids". Hx migraines. Hx jaundice/Hepatitis-not sure what type." Alternating diarrhea and constitaion. No CPAP use. Legs cramps at night. Bilateral carpal tunnel. bilateral hip pain daily. Last Myocardial Infarction Date:: 1991 History of Any Multi-Drug Resistant Organisms: None Reported Past Surgical History: Appendectomy, Hernia Repair, Orthopedic Surgery, Tonsil lectomy Additional Past Surgical History / Comment(s): Right foot surgery, bilateral cataracts removed, bilateral inguinal hernia repair. Past Anesthesia/Blood Transfusion Reactions: No Reported Reaction Additional Past Anesthesia/Blood Transfusion Reaction / Comm: Clausterphobia. Never had a blood transfusion. Past Psychological History: ADD/ADHD, Anxiety, Schizophrenia Smoking Status: Former smoker Past Alcohol Use History: Rare Past Drug Use History: Marijuana - Past Family History Father Family Medical History: Cancer Mother Additional Family Medical History / Comment(s): RH neg, "lung problems." Medications and Allergies Home Medications Medication Instructions Recorded Confirmed Type Tamsulosin HCl [Flomax] 0.4 mg PO DAILY 02/24/18 02/17/24 History Pantoprazole Sodium [Protonix] 40 mg PO DAILY 01/11/21 02/17/24 History oxyCODONE-APAP 10-325MG [Percocet 1 tab PO TID PRN 01/11/21 02/17/24 History 10-325 mg] Acyclovir 800 mg PO DAILY 09/12/23 02/17/24 History Budesonide/Glycopyr/Formoterol 1 puff INHALATION RT-DAILY 09/12/23 02/17/24 History [Breztri Aerosphere Inhaler] Cetirizine HCl 10 mg PO HS 09/12/23 02/17/24 History DULoxetine HCL [Cymbalta] 30 mg PO DAILY 09/12/23 02/17/24 History DULoxetine HCL [Cymbalta] 60 mg PO DAILY 09/12/23 02/17/24 History Finasteride [Proscar] 5 mg PO DAILY 09/12/23 02/17/24 History guanFACINE HCL [guanFACINE HCL ER] 2 mg PO HS 09/12/23 02/17/24 History hydrOXYzine HCL 25 mg PO TID PRN 09/12/23 02/17/24 History Albuterol Inhaler [Ventolin Hfa 2 puff INHALATION RT-QID PRN 02/17/24 02/17/24 History Inhaler] Fluticasone/Umeclidin/Vilanter 1 puff INHALATION RT-DAILY 02/17/24 02/17/24 History [Trelegy Ellipta 100-62.5-25] busPIRone HCl [Buspar] 5 mg PO BID 02/17/24 02/17/24 History Allergies Allergy/AdvReac Type Severity Reaction Status Date / Time clonazepam [From Klonopin] Allergy Itching Verified 02/17/24 10:34 divalproex sodium AdvReac RINGING OF Verified 02/17/24 10:34 [From Depakote] EARS Physical Exam Vitals: Vital Signs Temp Pulse Pulse Resp BP BP Pulse Ox 02/17/24 20:15 98.2 F 80 20 141/89 95 02/17/24 09:27 97.9 F 65 18 150/74 98 Intake and Output 02/17/24 02/17/24 02/18/24 14:59 22:59 06:59 Output Total 2100 Balance -2100 Output: Urine 2100 Other: Weight 67.585 kg Results CBC & Chem 7: 02/17/24 02:45 02/17/24 02:45 Labs: Abnormal Lab Results - Last 24 Hours (Table) 02/16/24 02/17/24 02/17/24 Range/Units 20:51 02:45 02:45 WBC 11.2 H (3.8-10.6) k/uL Neutrophils # 8.5 H (1.3-7.7) k/uL Sodium 135 L (137-145) mmol/L Chloride 109 H (98-107) mmol/L Carbon Dioxide 18 L (22-30) mmol/L BUN 24 H (9-20) mg/dL Glucose 112 H (74-99) mg/dL Total Bilirubin 1.5 H (0.2-1.3) mg/dL Urine Protein (Negative) Urine Blood (Negative) Ur Leukocyte Esterase (Negative) Urine RBC (0-5) /hpf Urine WBC (0-5) /hpf U Cannabinoids Screen Positive A (Negative) U Marijuana (THC) Screen (NotDetected) 02/17/24 02/17/24 Range/Units 02:49 16:11 WBC (3.8-10.6) k/uL Neutrophils # (1.3-7.7) k/uL Sodium (137-145) mmol/L Chloride (98-107) mmol/L Carbon Dioxide (22-30) mmol/L BUN (9-20) mg/dL Glucose (74-99) mg/dL Total Bilirubin (0.2-1.3) mg/dL Urine Protein Trace H (Negative) Urine Blood Moderate H (Negative) Ur Leukocyte Esterase Large H (Negative) Urine RBC 43 H (0-5) /hpf Urine WBC 61 H (0-5) /hpf U Cannabinoids Screen (Negative) U Marijuana (THC) Screen Detected H (NotDetected)
[2024-02-18] MEDS: PANTOPRAZOLE 40 MG TABLET PO SCH (05:02)
[2024-02-18 07:34] LABS: Glucose 114 mg/dL (74-99)
[2024-02-18 07:35] LABS: ALT 29 U/L (4-49); AST 51 U/L (17-59); African American GFR (CKD) 67 (>60 ml/min/1.73 sqM); Albumin 4.5 g/dL (3.5-5.0); Alkaline Phosphatase 87 U/L (38-126); Anion Gap 8 mmol/L; Bilirubin, Delta 0.4 mg/dL (0.0-0.2); Bilirubin,Unconjugated 1.2 mg/dL (0.0-1.1); Blood Urea Nitrogen 20 mg/dL (9-20); Calcium 9.8 mg/dL (8.4-10.2); Carbon Dioxide 27 mmol/L (22-30); Chloride 105 mmol/L (98-107); Non-African American GFR(CKD) 58 (>60 ml/min/1.73 sqM); Potassium 4.1 mmol/L (3.5-5.1); Sodium 140 mmol/L (137-145); Total Bilirubin 1.6 mg/dL (0.2-1.3); Total Protein 7.5 g/dL (6.3-8.2)
[2024-02-18 07:43] LABS: Basophils % (A) 1 %; Eosinophils # (A) 0.2 k/uL (0-0.7); Eosinophils % (A) 2 %; HGB 18.5 gm/dL (13.0-17.5); Lymphocytes # (A) 2.6 k/uL (1.0-4.8); Lymphocytes % (A) 35 %; MCH 30.2 pg (25.0-35.0); MCHC 32.3 g/dL (31.0-37.0); MCV 93.6 fL (80.0-100.0); Mean Platelet Volume 8.2; Monocytes # (A) 0.5 k/uL (0-1.0); Monocytes % (A) 7 %; Neutrophils % (A) 54 %; Platelet Count 202 k/uL (150-450); RBC 6.12 m/uL (4.30-5.90); RDW 13.5 % (11.5-15.5); WBC 7.5 k/uL (3.8-10.6)
[2024-02-18 07:50] LABS: HCT 57.2 % (39.0-53.0)
[2024-02-18] MEDS ORDERED: NON FORMULARY DRUG (Fluticasone/Umeclidin/Vilanter [Trelegy Ellipta 100-62.5-25] 1 EACH Bl INHALATION SCH (08:00)
[2024-02-18] MEDS: NICOTINE 14MG/24HR PATCH TRANSDERM SCH (08:48)
[2024-02-18] MEDS: TAMSULOSIN 0.4 MG CAP.ER.24H PO SCH (08:48)
[2024-02-18] MEDS: FINASTERIDE 5 MG TAB PO SCH (08:48)
[2024-02-18] MEDS: DULoxetine HCL 30 MG CAPSULE.DR PO SCH (08:48)
[2024-02-18] MEDS: SYMBICORT 160-4.5 MCG INHALER (MHU) INHALATION SCH (08:49)
[2024-02-18] MEDS: TIOTROPIUM 2.5 MCG INHALER (MHU) INHALATION SCH (08:50)
[2024-02-18 11:18] LABS: Chol/HDL Ratio 3.98 Ratio; LDL Cholesterol,Calculated 147.8 mg/dL (0.0-131.0)
[2024-02-18] MEDS: VENLAFAXINE HCL ER 37.5 MG CAP PO STA (12:47)
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
[2024-02-18] MEDS: traZODone HCL 50 MG TAB PO SCH (21:04)
[2024-02-18] MEDS: ARIPiprazole 5 MG TAB PO SCH (21:04)
[2024-02-18] MEDS: ARTIFICIAL TEARS-HYPROMELLOSE DROPS 15 ML BTL BOTH EYES PRN (23:03)
[2024-02-19] MEDS: IBUPROFEN 600 MG TAB PO PRN (02:34)
[2024-02-19] MEDS: hydrOXYzine HCL 25 MG TAB PO PRN (02:35)
[2024-02-19] MEDS: ONDANSETRON ODT 4 MG TAB PO PRN (07:53)
[2024-02-19 08:39] LABS: HCT 52.4 % (39.0-53.0); HGB 17.3 gm/dL (13.0-17.5); MCH 30.1 pg (25.0-35.0); MCV 91.3 fL (80.0-100.0); Mean Platelet Volume 8.3; Platelet Count 199 k/uL (150-450); RBC 5.74 m/uL (4.30-5.90); RDW 13.9 % (11.5-15.5); WBC 7.4 k/uL (3.8-10.6)
[2024-02-19] MEDS: VENLAFAXINE HCL ER 75 MG CAP PO SCH (08:44)
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
[2024-02-19] MEDS: MELATONIN 5 MG TABLET PO SCH (20:29)
[2024-02-19] MEDS: traZODone HCL 50 MG TAB PO SCH (20:29)
[2024-02-19] MEDS: amLODIPine 5 MG TAB PO SCH (21:33)
--- NOTE | 2024-02-20 12:35 | P.PN ---
Progress Note - Text Progress Note Date: 02/20/24 Interval History: Patient was seen wandering the hallways and was directable and agreeable to michelle lindquist with music writer in the office. He states feeling slightly better in terms of mood however his acid reflux is still bothering him but has also improved. He continues struggling with homicidal thoughts with no plan or intent however he has been working on ignoring them and replacing these thoughts with more positive thoughts. He denied any vomiting today and reports a good appetite. He reports high anxiety. He reports difficulties with falling asleep and staying asleep as he awoke at 5 AM. Patient has been actively participating in groups. Patient talked a lot about several losses of important people in his life throughout the years and how this has impacted him. Patient reports close nance with his sister who is watching his pets. At this time patient denies any suicidal ideations, intent or plan. Patient denies any auditory, visual hallucinations and denies any paranoia or delusions. Patient denies any side effects from the medications and has been compliant with meds. Mental Status Exam: General Appearance: Patient appears to be stated age is alert, directable, and cooperative. Long pal dreadlocks Behavior: Patient is calmly seated without any agitated behavior. Speech: Patient's speech is fluent and nonpressured. Mood/Affect: Mood is improving mildly, affect is congruent and constricted. Suicidality/Homicidality: Patient denies having any suicidal ideation intent or plan. Patient reports homicidal ideations with no plan or intent Perceptions: Patient denies any visual hallucinations and denies any auditory hallucinations Though content/process: There is no evidence of any delusional thought content and thought process is linear and goal-directed. Memory and concentration: AOX3, grossly intact for the purposes of this session Judgment and insight: Improving mildly Assessment Major depressive disorder, recurrent, moderate Generalized anxiety disorder Cannabis use disorder Tobacco use disorder, in sustained remission Plan: -Patient continues to meet criteria for inpatient psychiatric admission for symptom stabilization and safety. Patient has signed adult voluntary form and medication consent and was placed in patient's chart. -Medications: Increase Abilify to 7.5 mg at bedtime for mood stabilization, increase trazodone to 100 mg at bedtime for sleep, increase melatonin to 10 mg at bedtime for sleep, Effexor XR increased to 112.5 mg daily tomorrow for depression/anxiety -When necessary vistaril and zyprexa for agitation/aggression. -Labs: reviewed -NRT -not needed as patient does not smoke -SW on board for discharge planning. Encouraged the patient to participate in milieu. Anticipate discharge home early/mid next week pending stabilization of homicidal thoughts
[2024-02-20] MEDS: ARIPiprazole 15 MG TAB PO SCH (22:16)
[2024-02-20] MEDS: traZODone HCL 100 MG TAB PO SCH (22:18)
[2024-02-20] MEDS: MELATONIN 5 MG TABLET PO SCH (22:18)
[2024-02-21] MEDS: VENLAFAXINE HCL ER 37.5 MG CAP PO SCH (08:52)
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
[2024-02-21] MEDS: MAGNESIUM HYDROXIDE 2,400 MG/30 ML CUP PO PRN (15:11)
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
[2024-02-22] MEDS: LACTULOSE 20 GM/30 ML CUP PO PRN (15:06)
[2024-02-22] MEDS: diphenhydrAMINE 50 MG CAP PO SCH (22:06)
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
[2024-02-23] MEDS: polyethylene glycoL 3350 17 GM POWD.PACK PO STA (13:21)
[2024-02-23] MEDS: valACYclovir HCL 1,000 MG TABLET PO SCH (14:41)
[2024-02-24 06:53] VITALS: RESP 18; TEMP 97.8
[2024-02-24] MEDS: OLANZapine 5 MG TAB PO PRN (09:33)
[2024-02-24 09:37] VITALS: BP 153/91; PULSE 88
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
== END 2024-02-24 12:19 | disposition home or self-care (01) | DRG 885 ==
LOC: EC 19:52 → 3MHU 02-17 14:14
PROVIDERS: ADMIT Psychiatry & Neurology Psychiatry; ATTEND Psychiatry & Neurology Psychiatry
DX: F33.3 Major depressive disorder, recurrent, severe with psychotic symptoms (principal); B02.9 Zoster without complications; D72.829 Elevated white blood cell count, unspecified; F12.10 Cannabis abuse, uncomplicated; F17.201 Nicotine dependence, unspecified, in remission; F20.9 Schizophrenia, unspecified; F41.1 Generalized anxiety disorder; F42.9 Obsessive-compulsive disorder, unspecified; F44.81 Dissociative identity disorder; F90.9 Attention-deficit hyperactivity disorder, unspecified type; F98.8 Other specified behavioral and emotional disorders with onset usually occurring in childhood and adolescence; G24.01 Drug induced subacute dyskinesia; H91.90 Unspecified hearing loss, unspecified ear; I10 Essential (primary) hypertension; I25.2 Old myocardial infarction; J44.9 Chronic obstructive pulmonary disease, unspecified; K21.9 Gastro-esophageal reflux disease without esophagitis; K59.00 Constipation, unspecified; N40.0 Benign prostatic hyperplasia without lower urinary tract symptoms; R45.850 Homicidal ideations; Z55.5 Less than a high school diploma; Z79.899 Other long term (current) drug therapy; Z91.148 Patient's other noncompliance with medication regimen for other reason; Z91.51 Personal history of suicidal behavior
CPT/HCPCS: 36415; 51702; 51798; 80053; 80061; 80306; 81001; 82075; 82248; 83036; 84436; 84443; 85025; 85027; 87636; 93005; 96372; 99285